=== PATIENT | male | born 1950 | race Caucasian/White ===

== ENCOUNTER 2023-08-16 13:43 | Observation (INO) ==
--- NOTE | 2023-08-16 13:53 | ED Triage Note ---
Date of Service August 16, 2023 Provider in Triage Author: Carmelina Mccormick History of Present Illness This patient was briefly evaluated while in triage. An abbreviated physical exam was performed. This patient is a 73-year-old Male who presents to the ED for evaluation of abnormal MRI. Radiology report states 14 x 5 mm linear infarct involving the frontal lobe white matter. Pt denies any neurological deficits. Reports sent here for stroke workup. Physical Exam CONSTITUTIONAL: in no acute pain or distress, resting comfortably SKIN: pink, warm, dry CARDIAC: regular rate and rhythm RESPIRATORY: in no respiratory distress, lungs clear to auscultation ABDOMEN: no TTP MSK: 5/5 strength throughout NEURO: No neuro deficits noted, A&O x 3. Initial orders for labs and / or imaging were placed and patient was placed in the waiting area until a bed is available. Please see further documentation for the full ED course.
[2023-08-16 14:56] LABS: Basophils # (auto) 0.03 K/uL (0.00-0.20); Basophils % (auto) 0.6 %; Eosinophils # (auto) 0.11 K/uL (0.00-0.50); Eosinophils % (auto) 2.3 %; Hemoglobin 15.7 g/dl (14.0-18.0); Immature Granulocytes # (auto) 0.02 K/uL (0.01-0.20); Immature Granulocytes % (auto) 0.4 %; Lymphocytes # (auto) 0.92 K/uL (1.20-3.40); Lymphocytes % (auto) 18.9 %; Mean Corpuscular Hemoglobin 31.3 pg (25.0-34.0); Mean Corpuscular Hgb Conc 34.1 g/dL (32.0-36.0); Mean Corpuscular Volume 91.6 fL (80.0-100.0); Mean Platelet Volume 8.7 fL (9.4-12.4); Monocytes # (auto) 0.54 K/uL (0.11-0.59); Monocytes % (auto) 11.1 %; Neutrophils # (auto) 3.24 K/uL (1.40-6.50); Neutrophils % (auto) 66.7 %; Platelet Count 198 K/uL (130-400); RDW Standard Deviation 50.1 fL (36.4-46.3); Red Blood Count 5.02 M/uL (4.70-6.10); White Blood Count 4.86 K/ul (4.8-10.8)
[2023-08-16 15:05] LABS: Albumin Globulin Ratio 1.6 (0.9-2); Albumin Level 4.5 gm/dl (3.4-5.0); BUN Creatinine Ratio 19.5 (10-20); Bilirubin,Total 0.4 mg/dl (0.2-1.0); Calcium 9.9 mg/dl (8.6-10.3); Creatinine Clr Calc Pharmacy 48.1 ml/min; Est GFR (African American) 49.5 ml/min; Est GFR (Non-African American) 42.7 ml/min; Globulin 2.9 gm/dl (2.5-4.0); Potassium 4.3 mmol/L (3.5-5.1); Total Protein 7.4 gm/dl (6.0-8.3)
[2023-08-16 15:12] LABS: Troponin I High Sensitivity 4.2 pg/ml (0-20)
[2023-08-16 15:14] LABS: Partial Thromboplastin Ratio 1.1; Partial Thromboplastin Time 31 Seconds (21-31); Prothrombin Time 11.2 Seconds (9.0-12.0)
--- NOTE | 2023-08-16 15:33 | XRay Report ---
XR chest 1V not portable CLINICAL HISTORY: cva TECHNIQUE: Single frontal radiograph of the chest was obtained. Comparison: Comparison is made to chest radiograph 03/04/2022 FINDINGS: No lines and tubes are seen. Cardiomegaly is noted. The lungs are clear. No evidence of pleural effus ion or pneumothorax. IMPRESSION: No acute chest disease. Cardiomegaly is noted. ACT 112: Negative or not required by law. Electronically signed by: Barrett Cunningham M.D. 08/16/2023 3:32 PM
[2023-08-16] MEDS ORDERED: ASPIRIN CHEW 324 MG PO STA (15:43)
--- NOTE | 2023-08-16 15:43 | Emergency Department Note ---
Impression & Plan Stroke ADMIT ED Provider Note HPI: History obtained from patient and . The patient is a 73-year-old gentleman who presents the emergency department after a stroke was noted on an outpatient MRI that he received today for an abnormal hearing test. Patient states he had the MRI ordered because he had an abnormal hearing test and his provider was concerned that he might have a tumor or potential lesion on the vestibular nerve. Patient was contacted this morning as upon interpretation of the MRI there was noted to be a left frontal lobe infarct. Patient denies any appreciable neurologic deficits recently, his who is with him here in the ED states that she has noticed at times he seems off balance and has had some issues with slurred speech. She tells me that she has noticed this over the past several weeks. On arrival here to the ED the patient is hemodynamically stable, he is otherwise in no acute distress. ROS: - Per HPI Differential Diagnosis: Acute ischemic stroke, critical electrolyte abnormalities, dehydration/JINNY, ACS, arrhythmia to include atrial fibrillation, amongst other potential pathologies. *Outpatient medications and allergy history reviewed. PE: General: Alert HEENT: Normocephalic, trachea midline Eyes: Extraocular eye movement is intact, no scleral erythema Pulmonary: Clear to auscultation bilaterally, no wheezing Cardio: Regular rate and rhythm GI: Abdomen is soft to palpation : No suprapubic tenderness MSK: No evidence of trauma or malformation of the extremities, no edema Skin: No evidence of rash Neuro: Alert, no focal deficits, no drift of the upper extremities or lower extremities with testing against gravity, symmetrical facial movements are appreciated Psychiatric: Cooperative INDEPENDENT INTERPRETATIONS: gambling monitor: (As interpreted by myself): - An order was placed for continuous cardiac monitoring - Patient was noted to be in sinus rhythm with a rate of 85 EKG: (As interpreted by myself): Rate: 83 Rhythm: Normal sinus rhythm Intervals: Within normal limits ST changes: No ST elevation Time: 1422 Chest x-ray: (As interpreted by myself): No acute disease Interventions provided in ED: -Aspirin, IV fluid bolus NIH STROKE SCALE: 1A: Level of consciousness Alert; keenly responsive 0 1B: Ask month and age Both questions right 0 1C: 'Blink eyes' & 'squeeze hands' Performs both tasks 0 2: Horizontal extraocular movements Normal 0 3: Visual simeon No visual loss 0 4: Facial palsy Normal symmetry 0 5A: Left arm motor drift No drift for 10 seconds 0 5B: Right arm motor drift No drift for 10 seconds 0 6A: Left leg motor drift No drift for 5 seconds 0 6B: Right leg motor drift No drift for 5 seconds 0 7: Limb Ataxia No ataxia 0 8: Sensation Normal; no sensory loss 0 9: Language/aphasia Normal 0 10: Dysarthria Mild-moderate dysarthria: slurring but can be understood +1 11: Extinction/inattention No abnormality 0 TOTAL NIH SCORE =1 Medical Decision Making: IV was established lab work obtained, patient was placed on media monitor when placed in ED room. Lab work shows no leukocytosis, hemoglobin is normal, platelet count is normal, CMP does not show any critical findings, creatinine is slightly elevated above baseline at 1.59, patient was ordered IV fluids. Troponin is negative, EKG per my interpretation shows normal sinus rhythm without any acute ischemic changes or evidence of arrhythmia. I did review the report of the patient's MRI imaging of the brain today with and without contrast that showed evidence of a 14 x 5 mm linear appearing acute infarct in the left frontal lobe. Unclear symptom onset, the only symptoms the patient's is telling me about is that he has had some slurred speech which I can appreciate on my exam. At times he has had issues with balance but does not seem to have any issues today. Symptom onset is unclear, possibly could be weeks, therefore the patient is not considered a candidate for any thrombolytics or aggressive therapy at this point. I discussed this with the patient and his . I did recommend admission for secondary stroke work-up to which they are in agreement. [facility] hospitalist service was consulted for admission, case was discussed with Dr. Hay, and the patient was placed for admission in stable condition. Consultants/Discussions held with other healthcare providers: -HospitalistDr. Hay Disposition discussion held by myself with: -Patient and Diagnosis: 1. Acute stroke, left frontal lobe 2. Abnormal outpatient MRI of the brain 3. 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 GERD without esophagitis Peripheral neuropathy COPD (chronic obstructive pulmonary disease) Primary hypertension CAD (coronary artery disease) Atypical chest pain Hyperlipidemia Ischemic cardiomyopathy Surgical History S/P cardiac catheterization Family History (Updated 07/20/23 @ 11:45 by Charo Denny) Mother Heart disease Myocardial infarction Hypertension Father Alcoholism Sister , Age: 52 COPD (chronic obstructive pulmonary disease) Brother Coronary heart disease Other No family history of adverse response to anesthesia No family history of bleeding disorder Denies family history of Ovarian cancer Prostate cancer Breast cancer Colorectal cancer Social History (Updated 07/20/23 @ 11:45 by Charo Denny) Smoking Status: Never smoker Tobacco Type: Cigarettes packs per day: 1; Second Hand Exposure: No; Do You Dip or Chew Tobacco: No; Hx Alcohol Use: No Hx Substance Use: No Preferred Language: Divehi marital status: Current Living Situation: Spouse current occupational status: retired 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, 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 Feels Safe at Home: Yes Childhood Exposure to Second-Hand Smoke: Yes caffeine: Yes (Coffee, Carbonated beverage, 1 daily) Dental Care, Regularly: Yes Physical Activity Frequency: 3-4 Times per Week Physical Activity Frequency Comment: Walking Seatbelt Use: always Sunscreen Use: No Assistive Devices: None Allergies Allergies Allergy/AdvReac Type Severity Reaction Status Date / Time No Known Drug Allergies Allergy Unverified 07/20/23 11:43 Home Meds Home Medications Medication Instructions Recorded Confirmed aspirin 81 mg tablet,delayed 81 mg PO QAM 09/03/21 08/16/23 release nitroglycerin 0.4 mg sublingual 0.4 mg sublingual Q5M PRN Chest 09/03/21 08/16/23 tablet (Nitrostat) Pain cyanocobalamin (vitamin B-12) 1,000 mcg PO QAM 08/16/23 08/16/23 1,000 mcg tablet (Vitamin B-12) gabapentin 300 mg capsule 900 mg PO UD 08/16/23 08/16/23 hydrochlorothiazide 25 mg tablet 25 mg PO QAM 08/16/23 08/16/23 metformin 500 mg tablet 2,000 mg PO QPM 08/16/23 08/16/23 olmesartan 40 mg tablet 40 mg PO HS 08/16/23 08/16/23 omeprazole 20 mg capsule,delayed 20 mg PO QAM 08/16/23 08/16/23 release Previous Rx's Medication Instructions Recorded atorvastatin 20 mg tablet 20 mg PO HS #90 tabs 01/10/23 carvedilol 25 mg tablet 25 mg PO BID #180 tabs 04/05/23 Results & Data (ED) Vital Signs Vital Signs - 24 hr 08/16/23 13:53 Temperature 36.1 C L Temperature Source Temporal Artery Scan Pulse Rate 88 Respiratory Rate 20 Respiratory Effort / Characteristics Non-Labored Respiratory Depth Normal Blood Pressure 136/86 Blood Pressure Mean 102 Pulse Oximetry 96 Oxygen Delivery Method Room Air Sepsis Recent Fever Within 48 Hours No Sepsis New/Unexplained Change in Mental Status N/A Sepsis Action Taken by Nursing No Action Required Laboratory Data 08/16/23 14:26 08/16/23 14:26 Lab Results 08/16/23 Range/Units 14:26 WBC 4.86 (4.8-10.8) K/ul RBC 5.02 (4.70-6.10) M/uL Hgb 15.7 (14.0-18.0) g/dl Hct 46.0 (42.0-52.0) % MCV 91.6 (80.0-100.0) fL MCH 31.3 (25.0-34.0) pg MCHC 34.1 (32.0-36.0) g/dL RDW Std Deviation 50.1 H (36.4-46.3) fL RDW Coeff of [place] 15.0 H (11.5-14.5) % Plt Count 198 (130-400) K/uL MPV 8.7 L (9.4-12.4) fL Immature Gran % (Auto) 0.4 % Neut % (Auto) 66.7 % Lymph % (Auto) 18.9 % [place] % (Auto) 11.1 % Eos % (Auto) 2.3 % Baso % (Auto) 0.6 % Neut # (Auto) 3.24 (1.40-6.50) K/uL Lymph # (Auto) 0.92 L (1.20-3.40) K/uL [place] # (Auto) 0.54 (0.11-0.59) K/uL Eos # (Auto) 0.11 (0.00-0.50) K/uL Baso # (Auto) 0.03 (0.00-0.20) K/uL Immature Gran # (Auto) 0.02 (0.01-0.20) K/uL PT 11.2 (9.0-12.0) Seconds INR 1.0 (0.9-1.1) APTT 31 (21-31) Seconds PTT Ratio 1.1 Sodium 138 (136-145) mmol/L Potassium 4.3 (3.5-5.1) mmol/L Chloride 102 (98-107) mmol/L Carbon Dioxide 28 (21-32) mmol/L Anion Gap 8 (3-11) BUN 31 H (6-23) mg/dl Creatinine 1.59 H (0.6-1.4) mg/dl Est Cr Clr Drug Dosing 48.1 ml/min Est GFR ( Amer) 49.5 ml/min Est GFR (Non-Af Amer) 42.7 ml/min BUN/Creatinine Ratio 19.5 (10-20) Glucose 120 H (70-99(Fasting)) mg/dl Calcium 9.9 (8.6-10.3) mg/dl Total Bilirubin 0.4 (0.2-1.0) mg/dl AST 15 (13-39) U/L ALT 19 (7-52) U/L Alkaline Phosphatase 79 (34-104) U/L Troponin I High Sens 4.2 (0-20) pg/ml Total Protein 7.4 (6.0-8.3) gm/dl Albumin 4.5 (3.4-5.0) gm/dl Globulin 2.9 (2.5-4.0) gm/dl Albumin/Globulin Ratio 1.6 (0.9-2) Administered Medications Discontinued Medications Aspirin (Aspirin Chew 324 Mg) 324 mg PO NOW STA Stop: 08/16/23 15:44 Last Admin: 08/16/23 16:01 Dose: 324 mg Documented By: MIGNON Sodium Chloride (Nss) 500 mls @ 999 mls/hr IV .Q31M ONE Stop: 08/16/23 16:16 Last Admin: 08/16/23 16:02 Dose: 999 mls/hr Documented By: MIGNON Imaging Data Radiologist's Impression: Chest X-Ray 08/16/23 14:02 XR chest 1V not portable CLINICAL HISTORY: cva TECHNIQUE: Single frontal radiograph of the chest was obtained. Comparison: Comparison is made to chest radiograph 03/04/2022 FINDINGS: No lines and tubes are seen. Cardiomegaly is noted. The lungs are clear. No evidence of pleural effusion or pneumothorax. IMPRESSION: No acute chest disease. Cardiomegaly is noted. ACT 112: Negative or not required by law. Electronically signed by: Barrett Cunningham M.D. 08/16/2023 3:32 PM Discharge Plan Visit Data Chief Complaint: Referred by Doctor Stated Complaint: REF BY ABNORMALITIES IN MRI ED Provider: Anders Richardson Discharge Problem: Stroke Forms Stand Alone Forms: My [facility] [place] [facility] Prescriptions Prescriptions: No Action atorvastatin 20 mg tablet 20 mg PO HS Qty: 90 3RF aspirin 81 mg tablet,delayed release (DR/EC) 81 mg PO QAM nitroglycerin [Nitrostat] 0.4 mg tablet, sublingual 0.4 mg sublingual Q5M PRN (Reason: Chest Pain) Rx Instructions: do not exceed 3 doses per episode carvedilol 25 mg tablet 25 mg PO BID Qty: 180 3RF Rx Instructions: must administer with a meal/food gabapentin 300 mg capsule 900 mg PO UD Rx Instructions: Take 300mg in AM, 600mg in PM cyanocobalamin (vitamin B-12) [Vitamin B-12] 1,000 mcg Tablet 1,000 mcg PO QAM hydrochlorothiazide 25 mg tablet 25 mg PO QAM metformin 500 mg tablet 2,000 mg PO QPM omeprazole 20 mg capsule,delayed release(DR/EC) 20 mg PO QAM olmesartan 40 mg tablet 40 mg PO HS Referrals Referrals: Geri Banks MD [Primary Care Provider] - Discharge Problem: Stroke Qualifiers: CVA mechanism: unspecified Qualified Code(s): I63.9 - Cerebral infarction, unspecified
[2023-08-16] MEDS ORDERED: SODIUM CHLORIDE 0.9% 500 ML IV ONE (15:46)
--- NOTE | 2023-08-16 16:06 | History & Physical Report ---
Date of Service August 16, 2023 Assessment & Plan (1) Stroke: Plan: Asymptomatic on admission per exam - feels 2 weeks of mild slurred speech and off balance CT angiogram head/neck Echocardiogram with bubble Monitor for arrhythmia on telemetry Given lack of symptoms will hold off neurology consult Continue his usual anti-hypertensives - given lack of symptoms and unknown duration of stroke he doesn't clearly need permissive hypertension ASA, add clopidogrel, continue atorvastatin (may need to increase dose pending LDL with AM labs) (2) Type 2 diabetes mellitus with albuminuria: Plan: Hemoglobin A1C 6.5 in May, repeat with AM labs Home regimen of metformin alone NovoLog prescribed just for correction initially but will need basal dosing if frequently utilized (3) Sensorineural hearing loss (SNHL) of left ear with restricted hearing of right ear: (4) Ischemic cardiomyopathy: Plan: Continue carvedilol and losartan No signs of heart failure at this time (5) CAD (coronary artery disease): Plan: ASA, carvedilol, losartan, atorvastatin (6) Peripheral neuropathy: Plan: Continue gabapentin B12 with AM labs (7) GERD without esophagitis: Plan: Switch omeprazole to pantoprazole per hospital formulary Continue switching on discharge due to interaction with clopidogrel (8) Primary hypertension: Plan: Continue his usual anti-hypertesnives. Does not need permissive hypertension as discussed above Plan VTE Prophylaxis - low risk given likely short duration of stay Diet - heart healthy Disposition - observation to med/tele (2 midnight rule) Admission and Anticipated Discharge Date Admission Date: August 16, 2023 History of Present Illness Chief Complaint: Abnormal MRI Primary Care Provider: Geri Banks MD Mike Young is a 73 year old male who presents to the ER due to outpatient MRI by audiology performed for hearing loss. MRI brain concerning for acute stroke. Other than his hearing loss he denies any other symptoms of extremity weakness, change in sensation, facial droop, slurred speech, vision or speech changes. His is no longer at bedside but had expressed some concern about his speech and off balance over the last 2 weeks to the ER provider although this is denied by the patient. Allergies Allergy/AdvReac Type Severity Reaction Status Date / Time No Known Drug Allergies Allergy Unverified 07/20/23 11:43 Home Medications Medication Instructions Recorded Confirmed Type aspirin 81 mg tablet,delayed 81 mg PO QAM 09/03/21 08/16/23 History release nitroglycerin 0.4 mg sublingual 0.4 mg sublingual Q5M PRN Chest 09/03/21 08/16/23 History tablet (Nitrostat) Pain carvedilol 25 mg tablet 25 mg PO BID #180 tabs 04/05/23 08/16/23 Rx atorvastatin 20 mg tablet 20 mg PO HS 08/16/23 08/16/23 History cyanocobalamin (vitamin B-12) 1,000 mcg PO QAM 08/16/23 08/16/23 History 1,000 mcg tablet (Vitamin B-12) gabapentin 300 mg capsule 900 mg PO UD 08/16/23 08/16/23 History hydrochlorothiazide 25 mg tablet 25 mg PO QAM 08/16/23 08/16/23 History metformin 500 mg tablet 2,000 mg PO QPM 08/16/23 08/16/23 History olmesartan 40 mg tablet 40 mg PO HS 08/16/23 08/16/23 History omeprazole 20 mg capsule,delayed 20 mg PO QAM 08/16/23 08/16/23 History release semaglutide 0.25 mg or 0.5 mg (2 0.5 mg subcut WK 08/16/23 08/16/23 History mg/3 mL) subcutaneous pen injector Past Med/Surg History Medical History (Updated 08/16/23 @ 16:20 by Anders Richardson DO) Obesity (BMI 30-39.9) 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 GERD without esophagitis Peripheral neuropathy COPD (chronic obstructive pulmonary disease) Primary hypertension CAD (coronary artery disease) Atypical chest pain Hyperlipidemia Ischemic cardiomyopathy Surgical History S/P cardiac catheterization Family History (Updated 07/20/23 @ 11:45 by Charo Denny) Mother Heart disease Myocardial infarction Hypertension Father Alcoholism Sister , Age: 52 COPD (chronic obstructive pulmonary disease) Brother Coronary heart disease Other No family history of adverse response to anesthesia No family history of bleeding disorder Denies family history of Ovarian cancer Prostate cancer Breast cancer Colorectal cancer Social History (Updated 07/20/23 @ 11:45 by Charo Denny) Smoking Status: Former smoker Tobacco Type: Cigarettes packs per day: 1; Second Hand Exposure: No; Do You Dip or Chew Tobacco: No; Tobacco Cessation Education Requested by Patient: No Hx Alcohol Use: No Hx Substance Use: No Preferred Language: Senegalese Communication Ability: Effective Electrical Engineering Professor Required: No Beliefs That Will Affect Care: None marital status: Current Living Situation: Spouse current occupational status: retired 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, 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 Other Information That Helps Us Care for You: No Feels Safe at Home: Yes Safety Concerns: Feels Safe At This Time Childhood Exposure to Second-Hand Smoke: Yes caffeine: Yes (Coffee, Carbonated beverage, 1 daily) Dental Care, Regularly: Yes Physical Activity Frequency: 3-4 Times per Week Physical Activity Frequency Comment: Walking Seatbelt Use: always Sunscreen Use: No Assistive Devices: None Review of Systems Review of Systems: All systems reviewed & are unremarkable except as noted in HPI & below Physical Exam Constitutional: WD/WN, vitals as above Eyes: PERRL, conjunctivae normal, anicteric sclerae Respiratory: normal respiratory effort, lungs clear to auscultation Cardiovascular: RRR, no murmur, no edema Gastrointestinal (Abdomen): normal bowel sounds, soft, nontender, no hepatosplenomegaly Musculoskeletal: no cyanosis or clubbing, extremities motor strength 5/5 Skin: no rashes, warm and dry Neurologic: moves all extremities and awake; no focal motor deficits and not confused Speech / Cognition: normal speech Motor/Sensory: no tremor and no pronator drift Cranial Nerves: PERRL, normal accommodation, EOM intact bilaterally, normal facial strength, able to rotate head bilaterally, able to elevate shoulders bilaterally, no nystagmus and symmetric palate elevation Psychiatric: A+Ox3, euthymic affect Genitourinary: no CVA tenderness Results & Data Results & Data Vital Signs (Past 12 Hours) Vital Signs Temp Pulse Resp BP Pulse Ox O2 Del Method 08/16/23 13:53 36.1 C L 88 20 136/86 96 Room Air Laboratory Results Abnormal lab results 08/16/23 Range/Units 14:26 RDW Std Deviation 50.1 H (36.4-46.3) fL RDW Coeff of [place] 15.0 H (11.5-14.5) % MPV 8.7 L (9.4-12.4) fL Lymph # (Auto) 0.92 L (1.20-3.40) K/uL BUN 31 H (6-23) mg/dl Creatinine 1.59 H (0.6-1.4) mg/dl Glucose 120 H (70-99(Fasting)) mg/dl Diagnostic Findings XR chest 1V not portable CLINICAL HISTORY: cva TECHNIQUE: Single frontal radiograph of the chest was obtained. Comparison: Comparison is made to chest radiograph 03/04/2022 FINDINGS: No lines and tubes are seen. Cardiomegaly is noted. The lungs are clear. No evidence of pleural effusion or pneumothorax. IMPRESSION: No acute chest disease. Cardiomegaly is noted. Brain MRI WITH AND WITHOUT CONTRAST HISTORY: Left sided hearing loss. [id number] - TECHNIQUE: Multiplanar multisequence MRI of the brain was performed both before and after the intravenous administration of contrast. COMPARISON STUDY: Head CT 10/15/2021. FINDINGS: Small linear focus of restricted diffusion within the left frontal lobe white matter best seen on image 20. This is consistent with an acute infarct. This measures approximate 14 x 5 mm. The midline structures are intact. The orbits are unremarkable. The paranasal sinuses and mastoid air cells are clear. The major vascular flow-voids at the skull base are well-maintained. The ventricles and sulci demonstrate mild age-related involutional changes. There is no mass, hematoma, midline shift, or acute infarct. Scattered foci of T2 hyperintensity within the periventricular and subcortical white matter are nonspecific but favor mild microvascular ischemic change given the patient's age. Postcontrast sequences show no areas of abnormal enhancement. The 7th and 8th cranial nerves are normal in course and caliber. No evidence for inner ear dysplasia. No abnormal enhancement or masses within the bilateral internal auditory canals. IMPRESSION: 1. A 14 x 5 mm linear acute infarct involving the left frontal lobe white matter. 2. Normal bilateral internal auditory canals. 3. This report was called/faxed to the referring physician following dictation. Medications Administered ER Medications Given: Normal saline 500ml Aspirin 324mg PO ECG Rate (beats per minute): 83 Rhythm: normal sinus Findings: no acute ischemic change Comparison ECG Date: from (February 24, 2021) Change: no significant change Code Status & VTE Plan Code Status Full VTE Prophylaxis Plan VTE Prophylaxis will be ordered: No PG Care Time/CCT Total # of Minutes Spent Total Time Spent with Patient: Total time spent is greater than 50% in coordination of care (as documented) at patient's floor/unit and/or counseling patient: Coding Level of Care Code 69322 INT INP/OBS CARE Diagnoses Stroke I63.9 CVA mechanism: unspecified Type 2 diabetes mellitus with albuminuria E11.29; R80.9 Sensorineural hearing loss (SNHL) of left ear with restricted hearing of right ear H90.A22 Ischemic cardiomyopathy I25.5 CAD (coronary artery disease) I25.10 Peripheral neuropathy G62.9 GERD without esophagitis K21.9 Primary hypertension I10 (1) Stroke CVA mechanism: unspecified Qualified Code(s): I63.9 - Cerebral infarction, unspecified
[2023-08-16] MEDS ORDERED: LACTATED RINGER'S 500 ML IV ONE (16:28)
[2023-08-16] MEDS ORDERED: OPTIRAY 320 125ml IV ONE (17:43)
[2023-08-16] MEDS ORDERED: CLOPIDOGREL BISULFATE 300 MG TAB PO STA (18:20)
--- NOTE | 2023-08-16 18:36 | CT Scan Report ---
CT angio neck with con, CT angio head wo/w CLINICAL HISTORY: 14 x 5 mm linear acute frontal lobe infarct TECHNIQUE: Contiguous axial CT images of the head were acquired from the base of the skull to the odilia barbie without intravenous contrast administration. CT angiography of the head and neck was performed f ollowing intravenous administration of iodinated contrast. Coronal and sagittal MIPS were obtained fr om the axial data set and were submitted for review. Automated dose lowering techniques and/or adjus tment according to patient size were utilized for this examination. All measurements were calculated based on NASCET criteria. CT DOSE: 1208.62 mGy.cm Comparison: Comparison is made to MRI brain 08/16/2023 FINDINGS: CT head: Areas of decreased attenuation are present in the periventricular and subcortical white jocelyn er bilaterally consistent with small vessel ischemic disease. Generalized cerebral atrophy with comme nsurate enlargement of the ventricles, sulci, and cisterns is also present. Questionable minimal hypo density at the site of diffusion restriction seen on prior MRI. Lungs and soft tissues are unremarkable. CTA Neck: A 3 vessel aortic arch is shown. There is no significant atherosclerotic plaque in the aor tic arch or the origins of the innominate, left common carotid, and left subclavian arteries. The co mmon carotid, external carotid, cervical segments of the internal carotid arteries, and the cervical segments of the vertebral arteries are patent without hemodynamically significant stenosis. The verte bral arteries are codominant. There is a 5 mm aneurysm of the right the fourth segment of the vertebr al artery. CTA Head: The anterior and posterior cerebral circulations are patent. No hemodynamically significan t stenosis, aneurysm, dissection, or arteriovenous malformation is shown. IMPRESSION: 1. Questionable hypodensity corresponding to the focus of diffusion restriction in the prior MRI. 2. No occlusion, hemodynamically significant stenosis, or dissection in the major cervical arteries. There is aneurysmal enlargement of the right vertebral artery the V4 segment. 3. No occlusion, hemodynamically significant stenosis, aneurysm, dissection, or arteriovenous malfor mation in the major intracranial arteries. Assessment of stenosis of the internal carotid arteries is based on NASCET criteria. ACT 112: Negative or not required by law. Electronically signed by: Barrett Cunningham M.D. 08/16/2023 6:34 PM
[2023-08-16] MEDS ORDERED: ATORVASTATIN 20 MG TAB PO SCH (22:02)
[2023-08-16] MEDS ORDERED: GLUCOSE 40% GEL 15 GM TUBE PO PRN (22:02)
[2023-08-16] MEDS ORDERED: PHARMACIST DISCHARGE MED REC CONSULT PRN (22:02)
[2023-08-16] MEDS ORDERED: DEXTROSE 50% 50 ML SYRINGE IV PRN (22:02)
[2023-08-16] MEDS ORDERED: GLUCAGON FOR INJ 1 MG VIAL SQ PRN (22:02)
[2023-08-16] MEDS ORDERED: CARBOHYDRATES FOR HYPOGLYCEMIA PO PRN (22:02)
[2023-08-16] MEDS ORDERED: GLUCOSE 10 TAB/TUBE PO PRN (22:02)
[2023-08-16] MEDS ORDERED: GABAPENTIN 600 MG TAB PO SCH (22:02)
[2023-08-16] MEDS: carvediloL 25 MG TAB PO SCH (22:46)
[2023-08-16] MEDS: INSULIN ASPART PER UNIT CHARGE SC SCH (22:53)
[2023-08-17 06:53] LABS: Basophils # (auto) 0.03 K/uL (0.00-0.20); Basophils % (auto) 0.7 %; Eosinophils # (auto) 0.12 K/uL (0.00-0.50); Eosinophils % (auto) 2.6 %; Immature Granulocytes # (auto) 0.01 K/uL (0.01-0.20); Immature Granulocytes % (auto) 0.2 %; Lymphocytes # (auto) 0.83 K/uL (1.20-3.40); Lymphocytes % (auto) 18.2 %; Mean Corpuscular Hgb Conc 34.9 g/dL (32.0-36.0); Mean Corpuscular Volume 88.8 fL (80.0-100.0); Mean Platelet Volume 8.6 fL (9.4-12.4); Monocytes # (auto) 0.76 K/uL (0.11-0.59); Monocytes % (auto) 16.7 %; Neutrophils % (auto) 61.6 %; Platelet Count 170 K/uL (130-400); RDW Coefficient of Variation 14.8 % (11.5-14.5); RDW Standard Deviation 47.8 fL (36.4-46.3); Red Blood Count 4.84 M/uL (4.70-6.10); White Blood Count 4.55 K/ul (4.8-10.8)
[2023-08-17 07:20] LABS: BUN Creatinine Ratio 18.7 (10-20); Calcium 9.5 mg/dl (8.6-10.3); Chol HDL Ratio 6.3 (0-5); Creatinine Clr Calc Pharmacy 54.3 ml/min; Est GFR (African American) 58.3 ml/min; Est GFR (Non-African American) 50.3 ml/min; Potassium 4.2 mmol/L (3.5-5.1)
[2023-08-17 08:15] LABS: Estimated Average Glucose 131 mg/dl; Hemoglobin A1C 6.2 % (4.5-5.6)
[2023-08-17] MEDS: CLOPIDOGREL BISULFATE 75 MG TAB PO SCH ×2 (08:24→08:25)
[2023-08-17] MEDS: carvediloL 25 MG TAB PO SCH (08:25)
[2023-08-17] MEDS: INSULIN ASPART PER UNIT CHARGE SC SCH ×3 (08:25→17:12)
[2023-08-17] MEDS ORDERED: LOSARTAN POTASSIUM 50 MG TAB PO SCH (09:00)
[2023-08-17] MEDS ORDERED: PANTOprazole 40 MG TAB PO SCH (09:00)
[2023-08-17] MEDS ORDERED: hydroCHLOROthiazide 25 MG TAB PO SCH (09:00)
[2023-08-17] MEDS ORDERED: ASPIRIN 81 MG ECTAB PO SCH (09:00)
[2023-08-17] MEDS ORDERED: INFLUENZA VACCINE HIGH-DOSE (HD-IIV4) PF 65+ 0.7mL SYR IM ONE (09:00)
[2023-08-17] MEDS ORDERED: GABAPENTIN 300 MG CAP PO SCH (09:00)
--- NOTE | 2023-08-17 13:50 | XCELERA ---
[id number] \\[id number]\[id number]}___[id number]
--- NOTE | 2023-08-17 15:26 | Electrocardiogram Report ---
Test Reason : Blood Pressure : / mmHG Vent. Rate : 083 BPM Atrial Rate : 083 BPM P-R Int : 174 ms QRS Dur : 102 ms QT Int : 360 ms P-R-T Axes : 053 024 055 degrees QTc Int : 423 ms Normal sinus rhythm Inferior infarct , age undetermined Poor R wave progression, consider anterior HI vs. lead placement vs. LVH Abnormal ECG No previous ECGs available Confirmed by Karthik Haque ([id number]) on 08/17/2023 3:26:46 PM Referred By: REFERRED SELF Confirmed By:Karthik Haque
[2023-08-17] MEDS ORDERED: STROKE PATIENT DISCHARGE STA (17:13)
--- NOTE | 2023-08-17 17:19 | Discharge Summary ---
Date of Service date of admission - August 16, 2023 date of discharge - August 17, 2023 Admission HPI Per Admitting Provider Mike Young is a 73 year old male who presents to the ER due to outpatient MRI by audiology performed for hearing loss. MRI brain concerning for acute stroke. Other than his hearing loss he denies any other symptoms of extremity weakness, change in sensation, facial droop, slurred speech, vision or speech changes. His is no longer at bedside but had expressed some concern about his speech and off balance over the last 2 weeks to the ER provider although this is denied by the patient. Principal Diagnosis 1. left frontal lobe stroke 2. 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 Discharge Exam gen - NAD, looks well face - no droop mouth - MMM neck - no JVD heart - RRR, s1 s2, no murmur lungs - CTA b/l abd - soft NT ND BS+ ext - no edema, pulses 2+ b/l neuro - strength 5/5 x 4 exts; speech fluent/clear; no facial droop; no pronator drift Discharge Data Allergies Allergy/AdvReac Type Severity Reaction Status Date / Time No Known Drug Allergies Allergy Unverified 08/24/23 11:19 Consultations PT, OT, Speech therapy Procedures Performed Echocardiogram: Ordered Studies Chest X-Ray 08/16/23 14:02 XR chest 1V not portable CLINICAL HISTORY: cva TECHNIQUE: Single frontal radiograph of the chest was obtained. Comparison: Comparison is made to chest radiograph 03/04/2022 FINDINGS: No lines and tubes are seen. Cardiomegaly is noted. The lungs are clear. No evidence of pleural effusion or pneumothorax. IMPRESSION: No acute chest disease. Cardiomegaly is noted. ACT 112: Negative or not required by law. Electronically signed by: Barrett Cunningham M.D. 08/16/2023 3:32 PM Head CTA 08/16/23 16:25 CT angio neck with con, CT angio head wo/w CLINICAL HISTORY: 14 x 5 mm linear acute frontal lobe infarct TECHNIQUE: Contiguous axial CT images of the head were acquired from the base of the skull to the vertex without intravenous contrast administration. CT angiography of the head and neck was performed following intravenous administration of iodinated contrast. Coronal and sagittal MIPS were obtained from the axial data set and were submitted for review. Automated dose lowering techniques and/or adjustment according to patient size were utilized for this examination. All measurements were calculated based on NASCET criteria. CT DOSE: 1208.62 mGy.cm Comparison: Comparison is made to MRI brain 08/16/2023 FINDINGS: CT head: Areas of decreased attenuation are present in the periventricular and subcortical white matter bilaterally consistent with small vessel ischemic disease. Generalized cerebral atrophy with commensurate enlargement of the ventricles, sulci, and cisterns is also present. Questionable minimal hypodensity at the site of diffusion restriction seen on prior MRI. Lungs and soft tissues are unremarkable. CTA Neck: A 3 vessel aortic arch is shown. There is no significant atherosclerotic plaque in the aortic arch or the origins of the innominate, left common carotid, and left subclavian arteries. The common carotid, external carotid, cervical segments of the internal carotid arteries, and the cervical segments of the vertebral arteries are patent without hemodynamically significant stenosis. The vertebral arteries are codominant. There is a 5 mm aneurysm of the right the fourth segment of the vertebral artery. CTA Head: The anterior and posterior cerebral circulations are patent. No hemodynamically significant stenosis, aneurysm, dissection, or arteriovenous malformation is shown. IMPRESSION: 1. Questionable hypodensity corresponding to the focus of diffusion restriction in the prior MRI. 2. No occlusion, hemodynamically significant stenosis, or dissection in the major cervical arteries. There is aneurysmal enlargement of the right vertebral artery the V4 segment. 3. No occlusion, hemodynamically significant stenosis, aneurysm, dissection, or arteriovenous malformation in the major intracranial arteries. Assessment of stenosis of the internal carotid arteries is based on NASCET criteria. ACT 112: Negative or not required by law. Electronically signed by: Barrett Cunningham M.D. 08/16/2023 6:34 PM Neck CTA 08/16/23 16:25 CT angio neck with con, CT angio head wo/w CLINICAL HISTORY: 14 x 5 mm linear acute frontal lobe infarct TECHNIQUE: Contiguous axial CT images of the head were acquired from the base of the skull to the vertex without intravenous contrast administration. CT angiography of the head and neck was performed following intravenous administration of iodinated contrast. Coronal and sagittal MIPS were obtained from the axial data set and were submitted for review. Automated dose lowering techniques and/or adjustment according to patient size were utilized for this examination. All measurements were calculated based on NASCET criteria. CT DOSE: 1208.62 mGy.cm Comparison: Comparison is made to MRI brain 08/16/2023 FINDINGS: CT head: Areas of decreased attenuation are present in the periventricular and subcortical white matter bilaterally consistent with small vessel ischemic disease. Generalized cerebral atrophy with commensurate enlargement of the ventricles, sulci, and cisterns is also present. Questionable minimal hypodensity at the site of diffusion restriction seen on prior MRI. Lungs and soft tissues are unremarkable. CTA Neck: A 3 vessel aortic arch is shown. There is no significant atherosclerotic plaque in the aortic arch or the origins of the innominate, left common carotid, and left subclavian arteries. The common carotid, external carotid, cervical segments of the internal carotid arteries, and the cervical segments of the vertebral arteries are patent without hemodynamically significant stenosis. The vertebral arteries are codominant. There is a 5 mm aneurysm of the right the fourth segment of the vertebral artery. CTA Head: The anterior and posterior cerebral circulations are patent. No hemodynamically significant stenosis, aneurysm, dissection, or arteriovenous malformation is shown. IMPRESSION: 1. Questionable hypodensity corresponding to the focus of diffusion restriction in the prior MRI. 2. No occlusion, hemodynamically significant stenosis, or dissection in the major cervical arteries. There is aneurysmal enlargement of the right vertebral artery the V4 segment. 3. No occlusion, hemodynamically significant stenosis, aneurysm, dissection, or arteriovenous malformation in the major intracranial arteries. Assessment of stenosis of the internal carotid arteries is based on NASCET criteria. ACT 112: Negative or not required by law. Electronically signed by: Barrett Cunningham M.D. 08/16/2023 6:34 PM MRI brain (done just prior to admission): Brain MRI WITH AND WITHOUT CONTRAST HISTORY: Left sided hearing loss. [id number] - TECHNIQUE: Multiplanar multisequence MRI of the brain was performed both before and after the intravenous administration of contrast. COMPARISON STUDY: Head CT 10/15/2021. FINDINGS: Small linear focus of restricted diffusion within the left frontal lobe white matter best seen on image 20. This is consistent with an acute infarct. This measures approximate 14 x 5 mm. The midline structures are intact. The orbits are unremarkable. The paranasal sinuses and mastoid air cells are clear. The major vascular flow-voids at the skull base are well-maintained. The ventricles and sulci demonstrate mild age-related involutional changes. There is no mass, hematoma, midline shift, or acute infarct. Scattered foci of T2 hyperintensity within the periventricular and subcortical white matter are nonspecific but favor mild microvascular ischemic change given the patient's age. Postcontrast sequences show no areas of abnormal enhancement. The 7th and 8th cranial nerves are normal in course and caliber. No evidence for inner ear dysplasia. No abnormal enhancement or masses within the bilateral internal auditory canals. IMPRESSION: 1. A 14 x 5 mm linear acute infarct involving the left frontal lobe white matter. 2. Normal bilateral internal auditory canals. 3. This report was called/faxed to the referring physician following dictation. ACT 112: Negative or not required by law. Electronically signed by: Carloz Zhang M.D. 08/16/2023 11:07 AM Dictated: 08/16/231057 Transcribed: 08/16/231057 Hospital Course (1) Stroke: Outpatient MRI of the brain had been obtained due to hearing loss. The MRI was focused on his auditory canals because of left-sided hearing loss. Auditory canals were negative for masses/acoustic neuroma. Instead, MRI showed a small left frontal lobe stroke. Patient denied any specific symptoms from this stroke but his felt that he had been off balance some over the previous 1-2 weeks. Also some question of slurred speech. He had neither of these symptoms while hospitalized. CTA head and neck were negative except for incidental note of a 5mm aneurysm of the right vertebral artery. Echocardiogram did not show a source of thrombus. Telemetry was normal - specifically, no a.fib or a.flutter seen. He was continued on aspirin and plavix was added. He was continued on atorvastatin. His dose was increased from 20mg to 40mg as his LDL was 83. HDL was 26. Triglycerides were 268. PT, OT, and speech therapy saw him in consult. No outpatient services will be needed as he is essentially asymptomatic from this small stroke. Recommendations at discharge - 1. aspirin 81mg daily x 21 days then STOP 2. clopidogrel 75mg once daily indefinitely 3. increase atorvastatin to 40mg once daily 4. 30-day event monitor as outpatient - r/o PAF 5. routine referral to a neuro-vascular specialist for the right vertebral artery aneurysm (2) Type 2 diabetes mellitus with albuminuria: Hemoglobin A1C 6.2% this admission HOLD metformin at discharge due to IV contrast used for CT He will need a repeat creatinine in 48 hours post-discharge to ensure stability If creatinine remains stable can resume metformin at that time (3) Ischemic cardiomyopathy: EF 50-55% on echo this admission Continue coreg Continue olmesartan Was compensated his entire stay (4) CAD (coronary artery disease): Typically on aspirin, carvedilol, olmesartan, atorvastatin Follows with Dr Liu Villanueva, [facility] No recent ischemic symptoms (5) Peripheral neuropathy: Continue gabapentin per prior dosing Vitamin B12 level was wnl Neuropathy due to diabetes ? 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 stroke of the left frontal lobe of the brain - exact cause uncertain 2. aneurysm of the right vertebral artery - follow-up with a neuro-vascular specialist is needed 3. coronary artery disease 4. high cholesterol Activity: As commented below Activity Comment: no strenuous activities for at least 1 week Sexual Activity: Wait until after follow-up appointment Exercise/Sports: Wait until after follow-up appointment Driving/Machine Use: No driving until you see your family doctor in 1 week Non-emergency contact: Primary Care Provider and Lubrication Worker Call non-emergency contact if: you have any medication questions and your symptoms worsen Follow-up/Referrals: Liu Villanueva MD [Physician] - (see Dr Villanueva within the next few weeks to discuss your shortness of breath) Geri Banks MD [Primary Care Provider] - 08/24/23 10:30 am (APPT. with Chano Young PA-C) Diet: Heart Healthy Judy Attending Provider Instructions: Mr Hector, You were hospitalized after an outpatient MRI brain showed a small stroke in the front of the brain on the left. You underwent additional testing including CT scans of the arteries of the head & neck, echocardiogram, etc. We did not find a cause of your stroke on these additional scans. It is possible that the stroke was due to a small blocked artery in the front of the brain. We cannot see small arteries on most CT scans, etc. Incidentally we found a mild aneurysm in the back of the head in the right vertebral artery. This was an incidental finding and not the cause of your stroke. You will need follow-up for this with a neuro-vascular specialist - [place] or [place]. At this time we recommend - 1. INCREASE your cholesterol medication (atorvastatin) to 40mg once daily. 2. START plavix (clopidogrel) 75mg once daily for stroke prevention. Take your first dose tomorrow. 3. TAKE aspirin 81mg daily x 21 days then STOP/DISCONTINUE at that time. 4. Take it easy until you see your family doctor in follow-up. No driving until you see your family doctor. 5. We will mail a 30-day heart monitor to your home. This will be completed to detect a.fib and other heart rhythms that can cause stroke. Results will be forwarded to [facility] cardiology and your family doctor. 6. HOLD your metformin as you received IV contrast for your CT scans yesterday. You will need a repeat blood test in 1-2 days to ensure your kidney function is normal. You can have this lab drawn at the hospital's main lab. No need to fast. If the blood work is normal you will be able to resume your metformin later this week. 7. SEE Dr Villanueva - your pantry attendant - as soon as possible to discuss your shortness of breath with activity. Follow-up - see separate section It was our pleasure to care for you! Judy Paint Prepper Provider Instructions: Risk Factors for Stroke: You can reduce your chances of stroke by working with your medical provider to adopt a healthy lifestyle. Some specific ways to lower your chance of stroke are: * If you are a smoker, now is the time to stop smoking cigarettes * If you are diabetic, improve the control of your blood sugars * Avoid excessive amounts of alcohol * Control high blood pressure * Lose weight if you are overweight * Be sure to lead an active lifestyle * Eat a healthy diet low in salt, cholesterol and fat You should know about other risk factors for stroke that you are unable to control. These include: * Age 55 years or older * Male gender * Certain racial groups: , or / * Family History of Stroke, Mini stroke or Heart Attack * Sickle Cell Disease Follow Up: It is important for you to keep your follow up appointments with your medical provider. Who to Call and When: Medical Emergencies: Call 911 immediately if you experience any of the following warning signs and symptoms of Stroke: * Sudden numbness or weakness of the face, arm or leg, especially on one side of the body * Sudden confusion, trouble speaking or understanding * Sudden trouble seeing in one or both eyes * Sudden trouble walking, dizziness, loss of balance or coordination * Sudden severe headache with no cause Do not delay calling 911 if you experience any warning signs or symptoms of a stroke. Delay in seeking medical attention may affect what treatments can be given to you. . Pending Studies at Discharge: No Stand-Alone Forms: My [facility] [employer]-e-games, Smoking Cessation Medications and DC Order Prescriptions: New clopidogrel 75 mg Tablet 75 mg PO QAM Qty: 30 5RF Continued nitroglycerin [Nitrostat] 0.4 mg tablet, sublingual 0.4 mg sublingual Q5M PRN (Reason: Chest Pain) Rx Instructions: do not exceed 3 doses per episode carvedilol 25 mg tablet 25 mg PO BID Qty: 180 3RF Rx Instructions: must administer with a meal/food cyanocobalamin (vitamin B-12) [Vitamin B-12] 1,000 mcg Tablet 1,000 mcg PO QAM semaglutide 0.25 mg or 0.5 mg (2 mg/3 mL) Pen Injector 0.5 mg SUBCUT WK aspirin 81 mg tablet,delayed release (DR/EC) 81 mg PO QAM Qty: 21 0RF Rx Instructions: take for 3 weeks from time of hospital discharge then DISCONTINUE. Held metformin 500 mg tablet 2,000 mg PO QPM Hold Instructions: hold until your kidney function levels are repeated in 48 hours Discontinued atorvastatin 20 mg tablet 20 mg PO HS No Action gabapentin 300 mg capsule 900 mg PO UD Qty: 270 3RF Rx Instructions: Take 300mg in AM, 600mg in PM pantoprazole 20 mg tablet,delayed release (DR/EC) 20 mg PO DAILY Qty: 90 3RF Discharge Orders: Discharge Order (Routine); Ordered 08/17/23 Ordered By: Miko Palacio/Other Patient Handouts: Managing Type 2 Diabetes, Special Foot Care for Diabetes Admission Data Admit Date/Time: 08/16/23 16:31 Attending Provider: Miko Quinn Admit Provider: Miko Hay Primary Care Provider: Geri Banks Other Providers: Miko Hay Other Interventions: Discharge Summary Assessment (RN) Last Done: 08/17/23 17:27 Coding Level of Care Code 01197 INP/OBS DISCH >30 MIN Diagnoses Stroke I63.9 CVA mechanism: unspecified Type 2 diabetes mellitus with albuminuria E11.29; R80.9 Ischemic cardiomyopathy I25.5 CAD (coronary artery disease) I25.10 Peripheral neuropathy G62.9 GERD without esophagitis K21.9 Primary hypertension I10 Aneurysm of right vertebral artery I72.6 Dyspnea on exertion R06.09
--- NOTE | 2023-08-18 14:09 | Pharmacy Report ---
Pharmacist Stroke Counseling - Date of Service August 18, 2023 - Scope: Pharmacy has been consulted to provide medication discharge counseling for this patient admitted with [ischemic stroke] [hemorrhagic stroke] [transient ischemic attack] as per the Pharmacist Discharge Counseling for Stroke Patients Prot ocol. - Medications on Discharge: Home Medications Medication Instructions Recorded Confirmed nitroglycerin 0.4 mg sublingual 0.4 mg sublingual Q5M PRN Chest 09/03/21 08/16/23 tablet (Nitrostat) Pain cyanocobalamin (vitamin B-12) 1,000 mcg PO QAM 08/16/23 08/16/23 1,000 mcg tablet (Vitamin B-12) hydrochlorothiazide 25 mg tablet 25 mg PO QAM 08/16/23 08/16/23 metformin 500 mg tablet 2,000 mg PO QPM 08/16/23 08/16/23 olmesartan 40 mg tablet 40 mg PO HS 08/16/23 08/16/23 omeprazole 20 mg capsule,delayed 20 mg PO QAM 08/16/23 08/16/23 release semaglutide 0.25 mg or 0.5 mg (2 0.5 mg subcut WK 08/16/23 08/16/23 mg/3 mL) subcutaneous pen injector Medication Instructions Recorded carvedilol 25 mg tablet 25 mg PO BID #180 tabs 04/05/23 aspirin 81 mg tablet,delayed 81 mg PO QAM #21 tabs 08/17/23 release atorvastatin 40 mg tablet 40 mg PO DAILY #30 tabs 08/17/23 clopidogrel 75 mg tablet 75 mg PO QAM #30 tabs 08/17/23 gabapentin 300 mg capsule 900 mg (3 x 300 mg) PO UD #270 caps 08/17/23 - Action: The above medications, specifically ones for stroke treatment/prophylaxis, have been reviewed in detail with the patient and/or patient compliance representative(s) prior to discharge. This includes indication, common adverse reactions, drug inte ractions, and medication administration. Medication counseling has been employed using the teach-back method to ensure understanding. - Outcome: The patient and/or patient compliance representative(s) have demonstrated understanding of the medications. Additional comments: Spoke with patient over the phone to review discharge medications. He reports that he has been on plavix before in the past and is aware of the need for monitoring of any increase in bruising/bleeding. He is aware that aspirin is for only 3 weeks then to stop therapy. We did talk about the potential drug interaction with his plavix and omeprazole. He reports that his pharmacy where he fills the medications also alerted him to this interaction and he plans to bring this to his providers attention next week during his followup appt to see if they can switch to pantoprazole. He continues to hold metformin as directed on discharge due to receiving IV contrast and is getting labs drawn tomorrow to ensure renal function stable. Patient reports he is using a pill box for his medications. Patient aware to bring an updated medication list with him to his PCP visit next week. No other questions/concerns from patient at this time. Thank you for allowing pharmacy to be involved in the care of this patient. Please call [phone] with any additional questions
== END 2023-08-17 18:19 | disposition home or self-care (01) ==
LOC: EDINP 13:43 → ED 13:43 → SUATTDRO 16:31 → 2N 21:54
DX: E11.29 Type 2 diabetes mellitus with other diabetic kidney complication; I10 Essential (primary) hypertension; Z79.85 Long-term (current) use of injectable non-insulin antidiabetic drugs; Z79.899 Other long term (current) drug therapy; Z79.84 Long term (current) use of oral hypoglycemic drugs; Z82.49 Family history of ischemic heart disease and other diseases of the circulatory system; I25.10 Atherosclerotic heart disease of native coronary artery without angina pectoris; E11.42 Type 2 diabetes mellitus with diabetic polyneuropathy; I72.6 Aneurysm of vertebral artery; Z79.82 Long term (current) use of aspirin; I25.5 Ischemic cardiomyopathy; K21.9 Gastro-esophageal reflux disease without esophagitis; I63.9 Cerebral infarction, unspecified; E78.5 Hyperlipidemia, unspecified; Z87.891 Personal history of nicotine dependence; H90.A22 Sensorineural hearing loss, unilateral, left ear, with restricted hearing on the contralateral side; Z23 Encounter for immunization

== ENCOUNTER 2024-02-06 12:12 | Inpatient (IN) ==
[2024-02-06] MEDS: SODIUM CHLORIDE 0.9% 1,000 ML IV SCH (12:58)
[2024-02-06 13:00] LABS: Basophils # (auto) 0.04 K/uL (0.00-0.20); Basophils % (auto) 0.5 %; Eosinophils # (auto) 0.15 K/uL (0.00-0.50); Hemoglobin 17.3 g/dl (14.0-18.0); Immature Granulocytes # (auto) 0.03 K/uL (0.01-0.20); Immature Granulocytes % (auto) 0.4 %; Mean Corpuscular Hemoglobin 30.4 pg (25.0-34.0); Mean Corpuscular Hgb Conc 33.3 g/dL (32.0-36.0); Mean Corpuscular Volume 91.4 fL (80.0-100.0); Mean Platelet Volume 9.4 fL (9.4-12.4); Monocytes # (auto) 0.91 K/uL (0.11-0.59); Monocytes % (auto) 12.2 %; Neutrophils # (auto) 5.44 K/uL (1.40-6.50); Neutrophils % (auto) 72.9 %; Platelet Count 200 K/uL (130-400); RDW Coefficient of Variation 15.2 % (11.5-14.5); RDW Standard Deviation 50.4 fL (36.4-46.3); Red Blood Count 5.69 M/uL (4.70-6.10); White Blood Count 7.47 K/ul (4.8-10.8)
[2024-02-06 13:16] LABS: Albumin Globulin Ratio 1.4 (0.9-2); Albumin Level 4.5 gm/dl (3.4-5.0); Bilirubin,Total 0.8 mg/dl (0.2-1.0); Calcium 9.5 mg/dl (8.6-10.3); Creatinine Clr Calc Pharmacy 13.7 ml/min; Est GFR (African American) 11.5 ml/min; Est GFR (Non-African American) 9.9 ml/min; Globulin 3.3 gm/dl (2.5-4.0); Potassium 5.7 mmol/L (3.5-5.1); Total Protein 7.8 gm/dl (6.0-8.3)
[2024-02-06] MEDS: CALCIUM GLUCONATE 1,000 MG/60 ML BAG IV STA ×2 (13:29→20:43)
--- NOTE | 2024-02-06 13:45 | Emergency Department Note ---
Impression & Plan Acute renal failure with oliguria, Acute hyperkalemia, Diarrhea, Dehydration, Hypotension ED Provider Note NAME: CHANTELL FRANKEL AGE: 73 SEX: M : 1950 ARRIVES VIA: Walk-In INFORMANT: Patient, ED PROVIDER(S): Olaf Donnelly MD CHIEF COMPLAINT: Dehydration, diarrhea HPI: This is a 73-year-old male presenting for dehydration, diarrhea. Patient states that for the past 5 to 6 days he has had profuse diarrhea multiple times per day initially, now becoming less frequent. He thinks he had had 1 episode of urination in the past few days. His states he has been sleeping and otherwise not his usual self. He is very fatigued, sleeping on the couch and not interested in usual activities. He states he was lightheaded, dizzy. At triage apparently he was diaphoretic and pale as per triage nurse. Patient has no actual pain in his abdomen or back. ROS: See above HPI for pertinent positives & negatives. A total of 10 systems reviewed and were otherwise negative. PHYSICAL EXAMINATION: General: Fatigued, resting comfortably in no acute distress Head: Normocephalic and atraumatic Eyes: Normal inspection, extraocular muscles intact Ear, nose, throat: Normal external exam Neck: Normal range of motion Respiratory: lungs clear to auscultation bilaterally Cardiovascular: Regular rate/rhythm, no murmur GI: soft, nontender, no guarding or rebound Extremities: nontender, moves all extremities Neuro: The patient awake and alert, appropriately conversive, no focal deficits, symmetric faces Skin: Warm, dry, and intact MEDICAL DECISION MAKING: This is a 71-year male presented for dehydration and diarrhea. Patient does appear fatigued but otherwise is easily arousable. He is having reassuring vital signs aside for hypotension. Initially low 100s. Upon recheck it was in the 70s systolic. I was alerted to bedside by nurse. Second point of access gained and given 2 L for his hypotension. Pressure did come up and in the 90s does not look at this time. -Blood work reveals no current leukocytosis or anemia -Patient has new acute renal failure, creatinine is over 5 at this time with potassium of 5.7. BUN/creatinine ratio over 20. Patient not bradycardic at this time and EKG is as below showed no acute EKG hyperkalemic changes at this time. -Will order calcium gluconate for cardiac stabilization at this time. -Will discuss with nephrology for further planning -Discussed with Dr. Govea, nephrology, recommends fluid resuscitation and correcting the electrolyte abnormality. -Discussed with Dr. Serrano, and Rosalio Gibson PA-C for admission. Differential diagnosis: C. difficile, dehydration, sepsis, renal failure, electrolyte disturbances ER treatment provided: See below Diagnostics interpreted by me: ECG: ECG independently interpreted by me with normal sinus rhythm, rate of 85, normal axis, normal ND, normal QRS, normal QTc, no ST segment elevations consistent with STEMI criteria Cardiac Monitoring: An order was placed for continuous cardiac monitoring. The monitor shows a rate of 82 with sinus rhythm. Laboratory studies: As stated above and show below. Imaging studies: See below. Critical Care Note: I have personally spent 45 minutes of critical care time in the direct management of this patient. This includes bedside care, interpretation of diagnostic studies, and testing, discussion with consultants, patient, and family members, and other required patient management activities. This 45 minutes is in excess of all separately billable procedures. Past Med/Surg History Problem List (Updated 02/06/24 @ 14:50 by Olaf Donnelly MD) Hypotension (Acute) Dehydration (Acute) Diarrhea (Acute) Acute hyperkalemia (Acute) Acute renal failure with oliguria (Acute) Encounter for interrogation of cardiac recorder Cryptogenic stroke Type 2 diabetes mellitus with obesity GERD without esophagitis Dyspnea on exertion Aneurysm of right vertebral artery Sensorineural hearing loss (SNHL) of left ear with restricted hearing of right ear Bilateral hearing loss Obesity (BMI 30-39.9) 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 Ischemic cardiomyopathy Hyperlipidemia CAD (coronary artery disease) Primary hypertension COPD (chronic obstructive pulmonary disease) Peripheral neuropathy Tendinopathy of gluteus medius Greater trochanteric bursitis Strain of calf muscle Medical History Cryptogenic stroke Type 2 diabetes mellitus with obesity Obesity (BMI 30-39.9) 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 GERD without esophagitis Peripheral neuropathy COPD (chronic obstructive pulmonary disease) Primary hypertension CAD (coronary artery disease) Atypical chest pain Hyperlipidemia Ischemic cardiomyopathy Surgical History S/P cardiac catheterization Family History Mother Heart disease Myocardial infarction Hypertension Father Alcoholism Sister COPD (chronic obstructive pulmonary disease) Brother Coronary heart disease Other No family history of adverse response to anesthesia No family history of bleeding disorder Denies family history of Ovarian cancer Prostate cancer Breast cancer Colorectal cancer Social History Smoking Status: Former smoker Tobacco Type: Cigarettes packs per day: 1; Second Hand Exposure: No; Do You Dip or Chew Tobacco: No; Hx Alcohol Use: No Hx Substance Use: No Preferred Language: Tamazight Communication Ability: Effective Survey Research Analyst Required: No Beliefs That Will Affect Care: None marital status: Current Living Situation: Spouse current occupational status: 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, 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 Feels Safe at Home: Yes Childhood Exposure to Second-Hand Smoke: Yes caffeine: Yes (Coffee, Carbonated beverage, 1 daily) Dental Care, Regularly: Yes Physical Activity Frequency: 3-4 Times per Week Physical Activity Frequency Comment: Walking Seatbelt Use: always Sunscreen Use: No Assistive Devices: None Allergies Allergies Allergy/AdvReac Type Severity Reaction Status Date / Time No Known Drug Allergies Allergy n/a Unverified 01/27/24 07:54 Home Meds Home Medications Medication Instructions Recorded Confirmed nitroglycerin 0.4 mg sublingual 0.4 mg sublingual Q5M PRN Chest 09/03/21 02/06/24 tablet (Nitrostat) Pain cyanocobalamin (vitamin B-12) 1,000 mcg PO QAM 08/16/23 02/06/24 1,000 mcg tablet (Vitamin B-12) metformin 500 mg tablet 2,000 mg PO QPM 08/16/23 02/06/24 semaglutide 1 mg/dose (4 mg/3 mL) 1 mg subcut UD 02/06/24 02/06/24 subcutaneous pen injector Previous Rx's Medication Instructions Recorded gabapentin 300 mg capsule 900 mg (3 x 300 mg) PO UD #270 caps 08/23/23 atorvastatin 40 mg tablet 40 mg PO DAILY #90 tabs 10/14/23 carvedilol 25 mg tablet 25 mg PO BID #180 tabs 10/14/23 clopidogrel 75 mg tablet 75 mg PO QAM #90 tabs 10/14/23 hydrochlorothiazide 25 mg tablet 25 mg PO DAILY PRN take for SBP 10/14/23 >140 #90 tabs olmesartan 40 mg tablet 40 mg PO DAILY #90 tabs 10/14/23 pantoprazole 20 mg tablet,delayed 20 mg PO DAILY #90 tabs 10/14/23 release lidocaine 3 % topical cream 1 applic topical BID PRN pain 01/27/24 #28.35 grams Results & Data (ED) Vital Signs Vital Signs - 24 hr 02/06/24 12:16 02/06/24 12:30 02/06/24 12:40 Temperature 36.6 C Temperature Source Oral Pulse Rate 93 H 88 Pulse Rate [Apical] Pulse Rhythm Regular Pulse Strength Normal Respiratory Rate 18 Respiratory Effort / Characteristics Non-Labored Spontaneous Respiratory Depth Normal Respiratory Pattern Regular Blood Pressure 102/72 Blood Pressure [Left Arm] Blood Pressure Mean 82 Blood Pressure Mean [Left Arm] Blood Pressure Position Sitting Pulse Oximetry 95 Oxygen Delivery Method Room Air Sepsis Recent Fever Within 48 Hours No Sepsis New/Unexplained Change in Mental Status No Sepsis Action Taken by Nursing No Action Required 02/06/24 12:49 02/06/24 12:56 02/06/24 13:31 Temperature Temperature Source Pulse Rate 88 Pulse Rate [Apical] 84 Pulse Rhythm Pulse Strength Respiratory Rate 20 18 Respiratory Effort / Characteristics Non-Labored Spontaneous Respiratory Depth Normal Respiratory Pattern Blood Pressure Blood Pressure [Left Arm] 81/55 L 97/67 L Blood Pressure Mean Blood Pressure Mean [Left Arm] 63 77 Blood Pressure Position Pulse Oximetry 99 99 Oxygen Delivery Method Room Air Room Air Sepsis Recent Fever Within 48 Hours Sepsis New/Unexplained Change in Mental Status Sepsis Action Taken by Nursing 02/06/24 13:50 02/06/24 14:15 Temperature Temperature Source Pulse Rate Pulse Rate [Apical] 80 80 Pulse Rhythm Pulse Strength Respiratory Rate 16 18 Respiratory Effort / Characteristics Respiratory Depth Respiratory Pattern Blood Pressure Blood Pressure [Left Arm] 101/76 108/67 Blood Pressure Mean Blood Pressure Mean [Left Arm] 84 80 Blood Pressure Position Pulse Oximetry 99 100 Oxygen Delivery Method Room Air Room Air Sepsis Recent Fever Within 48 Hours Sepsis New/Unexplained Change in Mental Status Sepsis Action Taken by Nursing Laboratory Data 02/06/24 12:42 02/06/24 12:42 Lab Results 02/06/24 02/06/24 Range/Units 12:42 14:28 WBC 7.47 (4.8-10.8) K/ul RBC 5.69 (4.70-6.10) M/uL Hgb 17.3 (14.0-18.0) g/dl Hct 52.0 (42.0-52.0) % MCV 91.4 (80.0-100.0) fL MCH 30.4 (25.0-34.0) pg MCHC 33.3 (32.0-36.0) g/dL RDW Std Deviation 50.4 H (36.4-46.3) fL RDW Coeff of [place] 15.2 H (11.5-14.5) % Plt Count 200 (130-400) K/uL MPV 9.4 (9.4-12.4) fL Immature Gran % (Auto) 0.4 % Neut % (Auto) 72.9 % Lymph % (Auto) 12.0 % [place] % (Auto) 12.2 % Eos % (Auto) 2.0 % Baso % (Auto) 0.5 % Neut # (Auto) 5.44 (1.40-6.50) K/uL Lymph # (Auto) 0.90 L (1.20-3.40) K/uL [place] # (Auto) 0.91 H (0.11-0.59) K/uL Eos # (Auto) 0.15 (0.00-0.50) K/uL Baso # (Auto) 0.04 (0.00-0.20) K/uL Immature Gran # (Auto) 0.03 (0.01-0.20) K/uL VBG pH 7.19 L (7.36-7.41) VBG pCO2 44 (38-50) mmHg VBG pO2 29 mmHg VBG HCO3 17 mmol/L VBG O2 Saturation < 60.0 % VBG Base Excess -11.1 mEq/L Sodium 132 L (136-145) mmol/L Potassium 5.7 H (3.5-5.1) mmol/L Chloride 102 (98-107) mmol/L Carbon Dioxide 19 L (21-32) mmol/L Anion Gap 11 (3-11) BUN 117 H (6-23) mg/dl Creatinine 5.32 H* (0.6-1.4) mg/dl Est Cr Clr Drug Dosing 13.7 ml/min Est GFR ( Amer) 11.5 ml/min Est GFR (Non-Af Amer) 9.9 ml/min BUN/Creatinine Ratio 22.0 H (10-20) Glucose 124 H (70-99(Fasting)) mg/dl Lactate 2.1 H* (0.4-2.0) mmol/L Calcium 9.5 (8.6-10.3) mg/dl Phosphorus 5.0 H (2.5-4.9) mg/dl Magnesium 2.3 (1.7-2.4) mg/dl Total Bilirubin 0.8 (0.2-1.0) mg/dl AST 6 L (13-39) U/L ALT 8 (7-52) U/L Alkaline Phosphatase 95 (34-104) U/L Total Protein 7.8 (6.0-8.3) gm/dl Albumin 4.5 (3.4-5.0) gm/dl Globulin 3.3 (2.5-4.0) gm/dl Albumin/Globulin Ratio 1.4 (0.9-2) Lipase 115 H (11-82) U/L Administered Medications Discontinued Medications Dextrose (Dextrose 50% 50 Ml Syringe) 50 ml IV NOW STA Stop: 02/06/24 13:46 Last Admin: 02/06/24 14:12 Dose: 50 ml Documented By: GAYLA Sodium Chloride (Nss) 1,000 mls @ 999 mls/hr IV .Q1H1M MANI Stop: 02/06/24 14:30 Last Infusion: 02/06/24 14:16 Dose: Infused Documented By: Admin: 02/06/24 13:29 Dose: 999 mls/hr Documented By: Infusion: 02/06/24 13:29 Dose: Infused Documented By: Admin: 02/06/24 12:58 Dose: 999 mls/hr Documented By: GAYLA Calcium Gluconate () 1,000 mg in 60 mls @ 240 mls/hr IV NOW STA Stop: 02/06/24 13:32 Last Infusion: 02/06/24 13:47 Dose: Infused Documented By: Admin: 02/06/24 13:29 Dose: 240 mls/hr Documented By: GAYLA Insulin Human Regular 10 units (/ Syringe) 10 mls @ 3 mls/sec IV ONE STA Stop: 02/06/24 13:46 Last Admin: 02/06/24 14:12 Dose: 3 mls/sec Documented By: GAYLA Co-signed By: HAZEL Discharge Plan Visit Data Chief Complaint: Diarrhea Stated Complaint: DIARRHEA, LOST BALANCE IN WAITING ROOM ED Provider: Olaf Donnelly Discharge Problem: Acute renal failure with oliguria, Acute hyperkalemia, Diarrhea, Dehydration, Hypotension Forms Stand Alone Forms: My [facility] [place] Prescriptions Prescriptions: No Action gabapentin 300 mg capsule 900 mg PO UD Qty: 270 3RF Rx Instructions: Take 300mg in AM, 600mg in PM olmesartan 40 mg tablet 40 mg PO DAILY Qty: 90 3RF atorvastatin 40 mg tablet 40 mg PO DAILY Qty: 90 3RF carvedilol 25 mg tablet 25 mg PO BID Qty: 180 3RF Rx Instructions: must administer with a meal/food clopidogrel 75 mg tablet 75 mg PO QAM Qty: 90 3RF hydrochlorothiazide 25 mg tablet 25 mg PO DAILY PRN (Reason: take for SBP >140) Qty: 90 3RF Rx Instructions: Take for SBP >140 pantoprazole 20 mg tablet,delayed release (DR/EC) 20 mg PO DAILY Qty: 90 3RF nitroglycerin [Nitrostat] 0.4 mg tablet, sublingual 0.4 mg sublingual Q5M PRN (Reason: Chest Pain) Rx Instructions: do not exceed 3 doses per episode lidocaine 3 % cream 1 applic topical BID PRN (Reason: pain) Qty: 28.35 3RF Rx Instructions: For discomfort over loop recorder cyanocobalamin (vitamin B-12) [Vitamin B-12] 1,000 mcg Tablet 1,000 mcg PO QAM metformin 500 mg tablet 2,000 mg PO QPM Hold Instructions: hold until your kidney function levels are repeated in 48 hours semaglutide 1 mg/dose (4 mg/3 mL) pen injector 1 mg SUBCUT UD Rx Instructions: No fill history Referrals Referrals: Geri Banks MD [Primary Care Provider] -
--- NOTE | 2024-02-06 14:02 | History & Physical Report ---
Date of Service February 06, 2024 Assessment & Plan (1) Acute renal failure with oliguria: Plan: -Admit to the PCU on tele and pulse oximetry -Currently stable and non-toxic appearing -Presented to the ED with ongoing diarrhea, dehydration and weakness -Cr today is 5.32, baseline is near 1.2 -Patient with reported little urine output at home, had 45 cc on bladder scan on arrival -At this time his acute renal failure with oliguria is likely multifactorial including dehydration from ongoing diarrhea and ongoing HCTZ and Olmesartan use while dehydrated -Will follow UA when obtained -S/P 2L NSS in the ED, due to his metabolic acidosis with AG WNL we will begin maintenance Sodium bicarbonate in sterile water x 2 bags for now >Will adjust IV fluids based on repeat labs throughout the day -Will obtain repeat bladder scan and place tinajero catheter if the patient is not able to void as we will need to monitor urine output closely moving forward -Will obtain renal/bladder US to monitor for obstruction -Nephrology consult placed -Monitor intake/output q6h -Will trend BMP, mag, phos, and VBG q4h overnight -HH/DMII diet with low potassium for now -SQ heparin for DVT PPX -AM CBC, BMP, mag, PT/INR (2) Metabolic acidosis with normal anion gap and bicarbonate losses: Plan: -Patient's VBG noted to have a pH of 7.19, pCO2 of 44, and pO2 of 29 -AG WNL, bicarb of 19, lactate of 2.1 -Likely being driven by dehydration, bicarbonate losses from diarrhea, and elevated lactate -Will start 150 meq IV sodium bicarbonate in sterile water at 125 mL/hr x 2 bags on admission -Will continue to trend BMP, mag, Phos, and VBG q4h overnight and adjust IV fluids as needed -Will follow repeat lactate -Continue to monitor on tele (3) Type 2 diabetes mellitus with obesity: Plan: -Hold metformin, Semaglutide -Monitor BSG ACHS , goal is 110-160 -Start CF 50 and CR 15 ACHS for now -Will hold basal insulin for now to avoid hypoglycemia with his renal failure -Adjust regimen as needed (4) Acute hyperkalemia: Plan: -Potassium of 5.7 on arrival -Patient does have mildly peaked T-waves when ECG today is compared to last in Aug -S/I 1gm IV calcium gluconate and 2L NSS in the ED -Patient was given 10 units IV insulin and 50 mL Dextrose on admission -Likely a combination of his renal failure, metabolic acidosis, and Olmesartan use with ongoing diarrhea -Will start maintenance sodium bicarbonate in sterile water at 125 ml/hr x 2 bags on admission -Will repeat 4 hour high sen trop and adjust treatment regimen as needed -Will continue I hydration and correction of his metabolic acidosis -Continue to monitor on tele, holding olmesartan -Monitor q4h BMP, mag, VBG (5) Slurred speech: Plan: -Patient's family has been noticing intermittent slurred speech and increased weakness left/right over the past 24-48 hours -Patient denies focal defects -His neuro exam is non-focal, does have intermittent slurred speech at times but not sure if this is due to neurologic defect, dry mucus membranes, and/or uremia at this time -Will obtain stat CT of the head/brain wo con now, can't obtain CTA's of the head/neck at this time with his renal failure -Will continue to monitor for improvement with treatment of his renal failure -Will need to see if his pacemaker is MRI compatible -Q4h neuro checks (6) Diarrhea: Plan: -Has had 6-10 episodes of non-bloody diarrhea daily for the past 7-10 days -Denies fever, no leukocytosis -Denies drinking well water or close contacts with symptoms recently -Denies recent abx use -Follow stool studies with C.diff toxin ordered on admission -Hod antidiarrheals until infectious source is ruled out -Continue supportive care (7) Hypotension: Plan: -Initially with systolics in the 80's on arrival -Currently stable at 114/78 after L NSS in the ED -Likely a combination of dehydration, ongoing diuretic use -Continue maintenance fluids, holding antihypertensives for now (8) COPD (chronic obstructive pulmonary disease): Plan: -Stable on RA, no wheezing on exam -Not on home breathing treatments -Start incentive spirometry and prn albuterol for now (9) CAD (coronary artery disease): Plan: -Continue plavix and statin Plan The patient was discussed with Dr. Serrano at the time of the admission History of Present Illness Chief Complaint: Diarrhea Primary Care Provider: Geri Banks MD Mike is a 73 year old male with a PMH significant for CAD s/p LAD BMS 2006, s/p RCA HELENE 2015, Ischemic Cardiomyopathy (LVEF 50-55% as of 08/2023), Hypertension, Dyslipidemia, Type 2 Diabetes Mellitus, Right Vertebral Artery Aneurysm, COPD, and Cryptogenic Stroke s/p [employer] LNQ II ILR Implantation 10/13/23 who presented to the [facility] ED on 02/06/24 with a chief complaint of ongoing diarrhea over the past 5-6 days. He was noted to be hypotensive on arrival at 81/55 and tachycardic at 93 but otherwise stable. Labs were significant for a Cr of 5.32 (baseline is 1.20), BUN of 117, bicarb of 19 with AG WNL, lactate of 2.1, potassium of 5.7, sodium of 132. Prior to admission the patient was given 2L NSS and 1gm IV calcium gluconate. The ED staff spoke with Nephrology who recommended medicine admission with ongoing IV fluids for now. On review, he does of mildly peaked T- waves on ECG today compared to 08/16/23. At the time of the exam the patient was sitting in bed in no acute distress with his , daughter, and son-in-law bedside, history was obtained from all. The patient has been experiencing 6-10 episodes of loose, non-bloody diarrhea for the past 7-10 days. Denies recent antibiotic use but recently completed a prednisone taper fro acute gout flare. He did complete the course of prednisone and his gout flare resolved. Has had poor oral intake, very little urine output over the past 24-48 hours. Denies recent fever, chills, chest pain, cough, SOB, abd pain, nausea, vomiting, dysuria, hematuria, melena, LE swelling, and recent trauma. When asked, they confirm that he has been taking all home medications as prescribed with these symptoms including his HCTZ and olmesartan. His family is concerned he may have had another stroke over the past 48-72 hours as they have noted slurred speech at time and they noted he was having LLE weakness while waking into the ED today. The patient denies focal neuro defects at the time of my exam and states his only complaint is being hungry. We discussed code status, the patient wishes to be a DNR/DNI and for his to make medical decisions for him if he cannot make them himself. Please refer to Dr. Serrano's attestation for any changes to the treatment plan Allergies Allergy/AdvReac Type Severity Reaction Status Date / Time No Known Drug Allergies Allergy n/a Unverified 01/27/24 07:54 Home Medications Medication Instructions Recorded Confirmed Type nitroglycerin 0.4 mg sublingual 0.4 mg sublingual Q5M PRN Chest 09/03/21 02/06/24 History tablet (Nitrostat) Pain cyanocobalamin (vitamin B-12) 1,000 mcg PO QAM 08/16/23 02/06/24 History 1,000 mcg tablet (Vitamin B-12) metformin 500 mg tablet 2,000 mg PO QPM 08/16/23 02/06/24 History gabapentin 300 mg capsule 900 mg (3 x 300 mg) PO UD #270 caps 08/23/23 02/06/24 Rx atorvastatin 40 mg tablet 40 mg PO DAILY #90 tabs 10/14/23 02/06/24 Rx carvedilol 25 mg tablet 25 mg PO BID #180 tabs 10/14/23 02/06/24 Rx clopidogrel 75 mg tablet 75 mg PO QAM #90 tabs 10/14/23 02/06/24 Rx hydrochlorothiazide 25 mg tablet 25 mg PO DAILY PRN take for SBP 10/14/23 02/06/24 Rx >140 #90 tabs olmesartan 40 mg tablet 40 mg PO DAILY #90 tabs 10/14/23 02/06/24 Rx pantoprazole 20 mg tablet,delayed 20 mg PO DAILY #90 tabs 10/14/23 02/06/24 Rx release lidocaine 3 % topical cream 1 applic topical BID PRN pain 01/27/24 02/06/24 Rx #28.35 grams semaglutide 1 mg/dose (4 mg/3 mL) 1 mg subcut UD 02/06/24 02/06/24 History subcutaneous pen injector Past Med/Surg History Problem List (Updated 02/06/24 @ 14:55 by Rosalio Gibson PA-C) Slurred speech Metabolic acidosis with normal anion gap and bicarbonate losses Hypotension (Acute) Dehydration (Acute) Diarrhea (Acute) Acute hyperkalemia (Acute) Acute renal failure with oliguria (Acute) Encounter for interrogation of cardiac recorder Cryptogenic stroke Type 2 diabetes mellitus with obesity GERD without esophagitis Dyspnea on exertion Aneurysm of right vertebral artery Sensorineural hearing loss (SNHL) of left ear with restricted hearing of right ear Bilateral hearing loss Obesity (BMI 30-39.9) 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 Ischemic cardiomyopathy Hyperlipidemia CAD (coronary artery disease) Primary hypertension COPD (chronic obstructive pulmonary disease) Peripheral neuropathy Tendinopathy of gluteus medius Greater trochanteric bursitis Strain of calf muscle Medical History Cryptogenic stroke Type 2 diabetes mellitus with obesity Obesity (BMI 30-39.9) 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 GERD without esophagitis Peripheral neuropathy COPD (chronic obstructive pulmonary disease) Primary hypertension CAD (coronary artery disease) Atypical chest pain Hyperlipidemia Ischemic cardiomyopathy Surgical History S/P cardiac catheterization Family History Mother Heart disease Myocardial infarction Hypertension Father Alcoholism Sister COPD (chronic obstructive pulmonary disease) Brother Coronary heart disease Other No family history of adverse response to anesthesia No family history of bleeding disorder Denies family history of Ovarian cancer Prostate cancer Breast cancer Colorectal cancer Social History Smoking Status: Former smoker Tobacco Type: Cigarettes packs per day: 1; Second Hand Exposure: No; Do You Dip or Chew Tobacco: No; Hx Alcohol Use: No Hx Substance Use: No Preferred Language: Portuguese Communication Ability: Effective [employer] Required: No Beliefs That Will Affect Care: None marital status: Current Living Situation: Spouse current occupational status: retired 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, 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 Feels Safe at Home: Yes Childhood Exposure to Second-Hand Smoke: Yes caffeine: Yes (Coffee, Carbonated beverage, 1 daily) Dental Care, Regularly: Yes Physical Activity Frequency: 3-4 Times per Week Physical Activity Frequency Comment: Walking Seatbelt Use: always Sunscreen Use: No Assistive Devices: None Physical Exam Physical Exam: Physical Exam: General: In no acute distress, stated age, chronically ill appearing but non- toxic HEENT: Normocephalic, atraumatic, no scleral icterus, pupils around round, symmetrical, and reactive to light, dry mucus membranes, no JVD, trachea midline, no thyromegaly Chest/Pulm: No respiratory distress, symmetrical chest expansion, clear breath sounds throughout Cardiac: RRR, no murmurs noted Abdomen: Negative for ascites and bruising, normoactive bowel sounds, soft, non-tender to palpation throughout Musculoskeletal: Symmetrical and without signs of acute trauma, upper and lower extremities with full ROM, no atrophy, spasticity, or flaccidity Extremities: Radial, dorsalis pedis, and posterior tibial pulses are intact and symmetrical, no edema noted in the BL LE's Skin: Warm, dry, no rashes , lesions, or scars noted Neuro: Alert and oriented to person, place, month, year, no focal defects, CN II-XII tested and intact, Negative cerebellar and pronator drift in the BL upper extremities, no tremors noted Psych: No acute distress, calm and cooperative during the exam Results & Data Results & Data Vital Signs (Past 12 Hours) Vital Signs Temp Pulse Pulse Resp BP BP Pulse Ox 02/06/24 13:50 80 16 101/76 99 02/06/24 13:31 84 18 97/67 L 99 02/06/24 12:56 81/55 L 02/06/24 12:49 88 20 99 02/06/24 12:40 88 02/06/24 12:30 36.6 C 02/06/24 12:16 93 H 18 102/72 95 O2 Del Method 02/06/24 13:50 Room Air 02/06/24 13:31 Room Air 02/06/24 12:56 02/06/24 12:49 Room Air 02/06/24 12:40 02/06/24 12:30 02/06/24 12:16 Room Air Laboratory Results Abnormal lab results 02/06/24 02/06/24 Range/Units 12:42 14:28 RDW Std Deviation 50.4 H (36.4-46.3) fL RDW Coeff of [place] 15.2 H (11.5-14.5) % Lymph # (Auto) 0.90 L (1.20-3.40) K/uL [place] # (Auto) 0.91 H (0.11-0.59) K/uL VBG pH 7.19 L (7.36-7.41) Sodium 132 L (136-145) mmol/L Potassium 5.7 H (3.5-5.1) mmol/L Carbon Dioxide 19 L (21-32) mmol/L BUN 117 H (6-23) mg/dl Creatinine 5.32 H* (0.6-1.4) mg/dl BUN/Creatinine Ratio 22.0 H (10-20) Glucose 124 H (70-99(Fasting)) mg/dl Lactate 2.1 H* (0.4-2.0) mmol/L Phosphorus 5.0 H (2.5-4.9) mg/dl AST 6 L (13-39) U/L Lipase 115 H (11-82) U/L Diagnostic Findings Head CT 02/06/24 14:28 CT OF THE HEAD WITHOUT CONTRAST CLINICAL HISTORY: slurred speech, left LE weakness COMPARISON STUDY: MRI of the brain August 16, 2023. Head CT and CTA of the head August 16, 2023. CT DOSE: 625.8 mGy.cm TECHNIQUE: Helical axial images of the head were obtained without IV contrast. Automated exposure control was utilized for the study. A dose lowering technique was utilized adhering to the principles of ALARA. FINDINGS: No acute intracranial hemorrhage, midline shift or mass effect is present. The ventricular system is stable. White matter hypodensities are similar to prior exam and favor small vessel disease. Small hypodensities within the posterior limb of the right internal capsule and right thalamus are unchanged. The basal cisterns are patent. No extra-axial collections are present. There are no findings to suggest acute dural sinus thrombosis or acute territorial infarct. No significant calvarial abnormalities are present. Visualized portions of the sinuses and mastoid air cells are clear. IMPRESSION: No acute intracranial findings. No change in appearance of the brain. ACT 112: Negative or not required by law. Electronically signed by: Tommy Greer M.D. 02/06/2024 2:50 PM ECG Additional Comments: Normal sinus rhythm Low voltage QRS Inferior infarct (cited on or before 16-AUG-2023) Cannot rule out Anterior infarct (cited on or before 16-AUG-2023) Abnormal ECG When compared with ECG of 16-AUG-2023 14:22, No significant change was found Code Status & VTE Plan Code Status DNR/DNI VTE Prophylaxis Plan VTE Prophylaxis will be ordered: Yes Supervising Physician Co-Signing Physician Notes Patient seen and examined, chart reviewed, case discussed with Rosalio Gibson, TRISTEN and I agree with the assessment and plan as above except as otherwise noted Labs and images reviewed 73-year-old male with no past history of renal failure who presents with 5 to 6 days of severe diarrhea several times per day gradually improving, but with oliguria in the last day and who has had progressive fatigue, lightheadedness, and weakness. He has a past history of ischemic cardiomyopathy on atorvastatin/Plavix/carvedilol/hydrochlorothiazide/olmesartan. Does not have a history of renal disease. Baseline creatinine is approximately 1.3. Creatinine on admission 5.32. Patient has acute renal failure with severe volume contraction due to GI/diarrheal illness. Stool PCR/C. difficile are pending. He is hyperkalemic at 5.7, EKG is without territorial ischemia; T waves do have a peaked appearance compared to prior. Calcium gluconate given in the ER. Volume expanded with saline. Insulin/dextrose ordered. Will trend BMP following fluids insulin/dextrose. VBG ordered. Additional bolus of LR given to volume expand. While LR has potassium this is hypotonic plasma and is preferred over saline to prevent potentiation of underlying metabolic acidosis. Olmesartan/hydrochlorothiazide are held. Nephrology consulted. Addendum: Blood gas 7./44//. Metabolic acidosis with hyperkalemia with profound GI losses and renal failure. Started on isotonic bicarb 150 mEq/sterile water at 125 cc/h. BMP every 4 hours. Repeat lactate pending Addendum 1750pm: UOP improving. K decreasing. Cr improving. Cath if PVR >350. Stable at bedside, still appears volume contracted. +Lr bolus ordered, continue isotonic IVFM. No CP/CP/SoB. PG Care Time/CCT Total # of Minutes Spent Total Time Spent with Patient: Total time spent is greater than 50% in coordination of care (as documented) at patient's floor/unit and/or counseling patient: Coding [place] [address] INT INP/OBS CARE 3/75MIN Patient Type Established Medical Decision Making High Complexity Diagnoses Acute renal failure with oliguria N17.9; R34 Metabolic acidosis with normal anion gap and bicarbonate losses E87.20 Type 2 diabetes mellitus with obesity E11.69; E66.9 Acute hyperkalemia E87.5 Slurred speech R47.81 Diarrhea R19.7 Hypotension I95.9 COPD (chronic obstructive pulmonary disease) J44.9 Coronary artery disease involving [place] coronary artery of [place] heart without angina pectoris I25.10 Associated angina: without angina Coronary Disease-Associated Artery/Lesion type: [place] artery [place] vs. transplanted heart: [place] heart (9) CAD (coronary artery disease) Associated angina: without angina Coronary Disease-Associated Artery/Lesion type: [place] artery [place] vs. transplanted heart: [place] heart Qualified Code(s): I25.10 - Atherosclerotic heart disease of [place] coronary artery without angina pectoris
[2024-02-06] MEDS: DEXTROSE 50% 50 ML SYRINGE IV STA (14:12)
[2024-02-06] MEDS: INSULIN HUMAN REGULAR PER UNIT 10 UNITS in SYRINGE 9.9 ML IV STA (14:12)
[2024-02-06 14:25] LABS: Magnesium 2.3 mg/dl (1.7-2.4)
[2024-02-06 14:39] LABS: Base Excess VBG -11.1 mEq/L; HCO3 VBG 17 mmol/L; Oxygen Saturation VBG < 60.0 %; PCO2 VBG 44 mmHg (38-50); PO2 VBG 29 mmHg; pH VBG 7.19 (7.36-7.41)
[2024-02-06] MEDS ORDERED: CARBOHYDRATES FOR HYPOGLYCEMIA PO PRN (14:43)
[2024-02-06] MEDS ORDERED: GLUCOSE 40% GEL 15 GM TUBE PO PRN (14:43)
[2024-02-06] MEDS ORDERED: DEXTROSE 50% 50 ML SYRINGE IV PRN (14:43)
[2024-02-06] MEDS ORDERED: GLUCAGON FOR INJ 1 MG VIAL SQ PRN (14:43)
[2024-02-06] MEDS ORDERED: GLUCOSE 10 TAB/TUBE PO PRN (14:43)
--- NOTE | 2024-02-06 14:52 | CT Scan Report ---
CT OF THE HEAD WITHOUT CONTRAST CLINICAL HISTORY: slurred speech, left LE weakness COMPARISON STUDY: MRI of the brain August 16, 2023. Head CT and CTA of the head August 16, 2023. CT DOSE: 625.8 mGy.cm TECHNIQUE: Helical axial images of the head were obtained without IV contrast. Automated exposure con trol was utilized for the study. A dose lowering technique was utilized adhering to the principles o f ALARA. FINDINGS: No acute intracranial hemorrhage, midline shift or mass effect is present. The ventricular system is stable. White matter hypodensities are similar to prior exam and favor small vessel disease . Small hypodensities within the posterior limb of the right internal capsule and right thalamus are unchanged. The basal cisterns are patent. No extra-axial collections are present. There are no findin gs to suggest acute dural sinus thrombosis or acute territorial infarct. No significant calvarial abn ormalities are present. Visualized portions of the sinuses and mastoid air cells are clear. IMPRESSION: No acute intracranial findings. No change in appearance of the brain. ACT 112: Negative or not required by law. Electronically signed by: Tommy Greer M.D. 02/06/2024 2:50 PM
[2024-02-06] MEDS: SODIUM BICARBONATE 8.4% 150 MEQ in WATER, STERILE 1,000 ML IV SCH (15:20)
[2024-02-06] MEDS: LACTATED RINGER'S 500 ML IV ONE ×2 (15:21→17:59)
[2024-02-06] MEDS ORDERED: ALBUTEROL 0.5% NEB SOLN 2.5 MG/0.5 ML VIAL NEB PRN (15:44)
[2024-02-06 16:06] LABS: Base Excess VBG -9.3 mEq/L; HCO3 VBG 19 mmol/L; Oxygen Saturation VBG < 60.0 %; PCO2 VBG 48 mmHg (38-50); PO2 VBG < 20 mmHg
[2024-02-06 16:31] LABS: BUN Creatinine Ratio 22.7 (10-20); Calcium 8.9 mg/dl (8.6-10.3); Creatinine Clr Calc Pharmacy 15.6 ml/min; Est GFR (African American) 12.9 ml/min; Est GFR (Non-African American) 11.1 ml/min; Magnesium 2.2 mg/dl (1.7-2.4); Phosphorus 3.6 mg/dl (2.5-4.9); Potassium 5.3 mmol/L (3.5-5.1)
[2024-02-06] MEDS ORDERED: Nursing to Pharmacy Communication SCH (16:45)
[2024-02-06 17:09] LABS: Appearance Urine Clear (Clear); Bilirubin Urine Negative (Negative); Blood Urine Negative (Negative); Color Urine Yellow; Glucose Urine UA Negative (Negative); Ketones Urine Negative (Negative); Leukocyte Esterase Urine Negative (Negative); Nitrite Urine Negative (Negative); Protein Urine Negative (Negative); Specific Gravity Urine 1.011 (1.000-1.030); Urobilinogen Urine Negative (Negative)
--- NOTE | 2024-02-06 17:19 | Ultrasound Report ---
RENAL ULTRASOUND CLINICAL HISTORY: Acute renal failure. COMPARISON STUDY: None. TECHNIQUE: Sonography of the kidneys and the urinary bladder was performed. FINDINGS: The right kidney measures 13.1 cm in maximal dimension and the left measures 13.2 cm. There is no hydronephrosis. Mild bilateral renal cortical thinning is present. There is a 1.1 cm left caleb l cyst. Both ureteral jets were identified. IMPRESSION: 1. No hydronephrosis. 2. Mild bilateral renal cortical thinning. ACT 112: Negative or not required by law. Electronically signed by: Tommy Greer M.D. 02/06/2024 5:18 PM
[2024-02-06] MEDS: INSULIN ASPART PER UNIT CHARGE SC SCH (17:49)
[2024-02-06] MEDS: carvediloL 25 MG TAB PO SCH (17:56)
[2024-02-06 19:05] LABS: Base Excess VBG -7.6 mEq/L; HCO3 VBG 20 mmol/L; Oxygen Saturation VBG < 60.0 %; PCO2 VBG 46 mmHg (38-50); PO2 VBG 21 mmHg; pH VBG 7.24 (7.36-7.41)
[2024-02-06 19:57] LABS: BUN Creatinine Ratio 23.1 (10-20); Calcium 8.9 mg/dl (8.6-10.3); Creatinine Clr Calc Pharmacy 16.3 ml/min; Est GFR (African American) 13.6 ml/min; Est GFR (Non-African American) 11.7 ml/min; Magnesium 2.1 mg/dl (1.7-2.4); Potassium 6.2 mmol/L (3.5-5.1)
[2024-02-06] MEDS: HEPARIN SOD 5,000 UNIT/0.5 ML VIAL SQ SCH (20:43)
[2024-02-06] MEDS: SODIUM ZIRCONIUM CYCLOSILICATE 10 GM PACKET PO STA (20:43)
[2024-02-06 22:52] LABS: Base Excess VBG -6.2 mEq/L; HCO3 VBG 20 mmol/L; Oxygen Saturation VBG 77.4 %; PCO2 VBG 39 mmHg (38-50); PO2 VBG 45 mmHg; pH VBG 7.31 (7.36-7.41)
[2024-02-06 23:14] LABS: BUN Creatinine Ratio 25.5 (10-20); Creatinine Clr Calc Pharmacy 18.5 ml/min; Est GFR (African American) 15.7 ml/min; Est GFR (Non-African American) 13.6 ml/min; Potassium 4.9 mmol/L (3.5-5.1)
[2024-02-07 03:34] LABS: Base Excess VBG -4.4 mEq/L; HCO3 VBG 21 mmol/L; Oxygen Saturation VBG 79.1 %; PCO2 VBG 39 mmHg (38-50); PO2 VBG 43 mmHg; pH VBG 7.34 (7.36-7.41)
[2024-02-07 03:59] LABS: BUN Creatinine Ratio 27.3 (10-20); Calcium 8.6 mg/dl (8.6-10.3); Creatinine Clr Calc Pharmacy 21.6 ml/min; Est GFR (African American) 18.9 ml/min; Est GFR (Non-African American) 16.3 ml/min; Magnesium 1.9 mg/dl (1.7-2.4); Potassium 4.6 mmol/L (3.5-5.1)
[2024-02-07 04:11] LABS: Adenovirus F 40/41 PCR Not Detected (NotDetected); Astrovirus PCR Not Detected (NotDetected); Campylobacter PCR Not Detected (NotDetected); Cryptosporidium PCR Not Detected (NotDetected); Cyclospora cayetanensis PCR Not Detected (NotDetected); Entamoeba histolytica PCR Not Detected (NotDetected); Enteroaggregative E.coli(EAEC) Not Detected (NotDetected); Enteropathogenic E.coli (EPEC) Not Detected (NotDetected); Enterotoxigenic E.coli (ETEC) Not Detected (NotDetected); Giardia lamblia PCR Not Detected (NotDetected); Norovirus GI/GII PCR Not Detected (NotDetected); Plesiomonas shigelloides PCR Not Detected (NotDetected); Rotavirus A PCR Not Detected (NotDetected); Salmonella PCR Not Detected (NotDetected); Sapovirus PCR Not Detected (NotDetected); Shiga-like Toxin E.coli (STEC) Not Detected (NotDetected); Shigella/Enteroinvasive E.coli Not Detected (NotDetected); Vibrio cholerae PCR Not Detected (NotDetected); Vibrio species PCR Not Detected (NotDetected); Yersinia enterocolitica PCR Not Detected (NotDetected)
[2024-02-07 04:14] LABS: Basophils # (auto) 0.02 K/uL (0.00-0.20); Basophils % (auto) 0.4 %; Eosinophils % (auto) 1.9 %; Hematocrit (blood only) 41.5 % (42.0-52.0); Hemoglobin 14.2 g/dl (14.0-18.0); Immature Granulocytes # (auto) 0.02 K/uL (0.01-0.20); Immature Granulocytes % (auto) 0.4 %; Lymphocytes # (auto) 0.77 K/uL (1.20-3.40); Lymphocytes % (auto) 14.3 %; Mean Corpuscular Hemoglobin 30.3 pg (25.0-34.0); Mean Corpuscular Hgb Conc 34.2 g/dL (32.0-36.0); Mean Corpuscular Volume 88.7 fL (80.0-100.0); Mean Platelet Volume 9.3 fL (9.4-12.4); Monocytes # (auto) 0.76 K/uL (0.11-0.59); Monocytes % (auto) 14.2 %; Neutrophils % (auto) 68.8 %; Platelet Count 134 K/uL (130-400); RDW Standard Deviation 49.1 fL (36.4-46.3); Red Blood Count 4.68 M/uL (4.70-6.10); White Blood Count 5.37 K/ul (4.8-10.8)
[2024-02-07 04:52] LABS: Cdiff Toxin B Gene (2yr or >) Positive Cdiff Gene (Neg)
[2024-02-07 04:58] LABS: Cdiff Antigen Positive; Cdiff Toxin A+B Negative Cdiff Toxin (Negative)
[2024-02-07 07:32] LABS: Estimated Average Glucose 140 mg/dl; Hemoglobin A1C 6.5 % (4.5-5.6)
[2024-02-07 07:47] LABS: Base Excess VBG 2.7 mEq/L; HCO3 VBG 29 mmol/L; Oxygen Saturation VBG < 60.0 %; PCO2 VBG 52 mmHg (38-50); PO2 VBG 20 mmHg; pH VBG 7.36 (7.36-7.41)
[2024-02-07] MEDS: ATORVASTATIN 40 MG TAB PO SCH (08:06)
[2024-02-07] MEDS: PANTOprazole 40 MG TAB PO SCH (08:06)
[2024-02-07] MEDS: CLOPIDOGREL BISULFATE 75 MG TAB PO SCH (08:07)
[2024-02-07 08:08] LABS: BUN Creatinine Ratio 28.6 (10-20); Calcium 8.9 mg/dl (8.6-10.3); Creatinine Clr Calc Pharmacy 23.8 ml/min; Est GFR (African American) 21.4 ml/min; Est GFR (Non-African American) 18.5 ml/min; Potassium 4.7 mmol/L (3.5-5.1)
--- NOTE | 2024-02-07 08:10 | Electrocardiogram Report ---
Test Reason : Blood Pressure : / mmHG Vent. Rate : 085 BPM Atrial Rate : 085 BPM P-R Int : 194 ms QRS Dur : 090 ms QT Int : 356 ms P-R-T Axes : 049 013 024 degrees QTc Int : 423 ms Normal sinus rhythm Low voltage QRS Old Inferior infarct (cited on or before 16-AUG-2023) Possible Old Anterior infarct (cited on or before 16-AUG-2023) Abnormal ECG When compared with ECG of 16-AUG-2023 14:22, No significant change was found Confirmed by Des Bonilla ([id number]) on 02/07/2024 8:10:22 AM Referred By: REFERRED SELF Confirmed By:Des Bonilla
--- NOTE | 2024-02-07 09:00 | Nephrology Consultation ---
Date of Consultation February 07, 2024 Assessment & Plan (1) JINNY (acute kidney injury): Non-oliguric. Creatinine improving (5.3-->3.18 mg/dL). Electrolytes normal. Volume status acceptable. There is no current indication for dialysis. JINNY attributed to dehydration. UA bland. Renal US without evidence of obstruction. IVF with HCO3 stopped this AM. Medications are appropriately dosed for kidney function. Continue to hold metformin, olmesartan, and HCTZ. I would suggest limiting gabapentin to 300 or 600 mg daily pending improved kidney function. Baseline creatinine normal. Low potassium diet. Repeat metabolic profile tomorrow AM. (2) Dehydration: Improved. IVF changed to Plasma-Lyte @ 80 ml/hr this AM to encourage slightly positive fluid balance. Document strict I/O's. (3) Metabolic acidosis with normal anion gap and bicarbonate losses: Secondary to diarrhea and JINNY. Improved with therapy. BP acceptable. (4) Acute hyperkalemia: Improved. s/p Lokelma. NAGMA improved. HCO3 normalized. Creatinine improving. Urine output acceptable. Low potassium diet. History of Present Illness Reason for Consultation: JINNY, hyperkalemia Requesting Physician: Leslie Barcenas MD Attending Physician: Leslie Barcenas MD History of Present Illness Mr. Mike Young is a 73 year old male with coronary artery disease (BMS LAD '07; HELENE RCA '16), ischemic cardiomyopathy (LVEF 50-55%), diabetes mellitus II, hypertension, dyslipidemia, right vertebral artery aneurysm, COPD, and cryptogenic CVA who presented to the [facility] ED on 02/06/24 with ~5-6 days of diarrhea. Family was also concerned that Mr. Young was slurring his speech and LLE weakness. Mr. Young was hypotensive on presentation. He was volume depleted with JINNY. Laboratory studies also notable for NAGMA and hyperkalemia. Serum potassium was 5.7 mmol/L, HCO3 19 mEq/L, and creat 5.32 mg/dL. EKG demonstrating peaked T waves but otherwise normal. Baseline creatinine is ~1.2 mg/dL. UA was bland with acellular microscopy. Renal US demonstrating the kidneys to be unobstructed. Urine output improved with IVF. HCTZ, olmesartan, metformin, and semaglutide have been held. Creatinine improving. Serum potassium and HCO3 have normalized. Mr. Young recently completed a course of prednisone for acute gout flare. PO intake has been poor. This is improving. He was seen and evaluated with his at the bedside this AM. I also discussed the plan of care with Dr. Barcenas. Diarrhea seems to have improved. Small bowel movement reported this AM. Mr. Young denies abdominal pain. He was off Ozempic for several weeks and restarted 1 mg weekly 2 weeks ago. Denies GI symptoms with the medication in the past. Allergies Allergy/AdvReac Type Severity Reaction Status Date / Time No Known Drug Allergies Allergy N/A Verified 02/06/24 18:01 Home Medications Medication Instructions Recorded Confirmed Type nitroglycerin 0.4 mg sublingual 0.4 mg sublingual Q5M PRN Chest 09/03/21 02/06/24 History tablet (Nitrostat) Pain cyanocobalamin (vitamin B-12) 1,000 mcg PO QAM 08/16/23 02/06/24 History 1,000 mcg tablet (Vitamin B-12) metformin 500 mg tablet 2,000 mg PO QPM 08/16/23 02/06/24 History gabapentin 300 mg capsule 900 mg (3 x 300 mg) PO UD #270 caps 08/23/23 02/06/24 Rx atorvastatin 40 mg tablet 40 mg PO DAILY #90 tabs 10/14/23 02/06/24 Rx carvedilol 25 mg tablet 25 mg PO BID #180 tabs 10/14/23 02/06/24 Rx clopidogrel 75 mg tablet 75 mg PO QAM #90 tabs 10/14/23 02/06/24 Rx hydrochlorothiazide 25 mg tablet 25 mg PO DAILY PRN take for SBP 10/14/23 02/06/24 Rx >140 #90 tabs olmesartan 40 mg tablet 40 mg PO DAILY #90 tabs 10/14/23 02/06/24 Rx pantoprazole 20 mg tablet,delayed 20 mg PO DAILY #90 tabs 10/14/23 02/06/24 Rx release lidocaine 3 % topical cream 1 applic topical BID PRN pain 01/27/24 02/06/24 Rx #28.35 grams semaglutide 1 mg/dose (4 mg/3 mL) 1 mg subcut UD 02/06/24 02/06/24 History subcutaneous pen injector Patient History Surgical History S/P cardiac catheterization Family History Mother Heart disease Myocardial infarction Hypertension Father Alcoholism Sister , Age: 52 COPD (chronic obstructive pulmonary disease) Brother Coronary heart disease Other No family history of adverse response to anesthesia No family history of bleeding disorder Denies family history of Ovarian cancer Prostate cancer Breast cancer Colorectal cancer Social History Smoking Status: Former smoker Tobacco Type: Cigarettes packs per day: 1; Smoking End Date: 10 years ago; Second Hand Exposure: No; Do You Dip or Chew Tobacco: No; Tobacco Cessation Education Requested by Patient: No Hx Alcohol Use: No Hx Substance Use: No Preferred Language: Danish Communication Ability: Effective Buying Intern Required: No Beliefs That Will Affect Care: None marital status: Current Living Situation: Spouse current occupational status: retired 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, [employer] Other Information That Helps Us Care for You: No Feels Safe at Home: Yes Safety Concerns: Feels Safe At This Time Childhood Exposure to Second-Hand Smoke: Yes caffeine: Yes (Coffee, Carbonated beverage, 1 daily) Dental Care, Regularly: Yes Physical Activity Frequency: 3-4 Times per Week Physical Activity Frequency Comment: Walking Seatbelt Use: always Sunscreen Use: No Assistive Devices: None Review of Systems Review of Systems: All systems reviewed & are unremarkable except as noted in HPI & below Physical Exam Constitutional: well developed; no acute distress Eyes: no scleral abnormality and no corneal abnormality ENMT: Mouth: no oral mucosal abnormality and oral mucous membranes not dry Neck: normal visual inspection and trachea midline Respiratory: normal respiratory effort Auscultation: lungs clear to auscultation bilaterally Cardiovascular: Rate/Rhythm: regular rate Extremities: no edema Gastrointestinal (Abdomen): Percussion/Palpation: abdomen soft; abdomen nontender and no guarding Musculoskeletal: Extremities: no cyanosis and no clubbing Skin: normal turgor; no jaundice Neurologic: Motor/Sensory: no tremor and no asterixis Psychiatric: Orientation: alert and oriented x 3 Results & Data Vital Signs (Past 12 Hours) Vital Signs Temp Pulse Pulse Resp BP Pulse Ox O2 Del Method 02/07/24 07:51 88 02/07/24 07:24 36.4 C L 82 16 152/99 H 95 Room Air 02/07/24 02:52 36.3 C L 85 104/70 96 Room Air 02/06/24 23:30 77 02/06/24 23:23 36.3 C L 85 18 144/86 H 93 Room Air 02/06/24 23:15 Room Air Laboratory Results Laboratory Results - last 24 hr 02/06/24 02/06/24 02/06/24 12:42 14:28 15:54 WBC 7.47 RBC 5.69 Hgb 17.3 Hct 52.0 MCV 91.4 MCH 30.4 MCHC 33.3 RDW Std Deviation 50.4 H RDW Coeff of [place] 15.2 H Plt Count 200 MPV 9.4 Immature Gran % (Auto) 0.4 Neut % (Auto) 72.9 Lymph % (Auto) 12.0 [place] % (Auto) 12.2 Eos % (Auto) 2.0 Baso % (Auto) 0.5 Neut # (Auto) 5.44 Lymph # (Auto) 0.90 L [place] # (Auto) 0.91 H Eos # (Auto) 0.15 Baso # (Auto) 0.04 Immature Gran # (Auto) 0.03 VBG pH 7.19 L 7.20 L VBG pCO2 44 48 VBG pO2 29 < 20 VBG HCO3 17 19 VBG O2 Saturation < 60.0 < 60.0 VBG Base Excess -11.1 -9.3 Sodium 132 L 133 L Potassium 5.7 H 5.3 H Chloride 102 107 Carbon Dioxide 19 L 19 L Anion Gap 11 7 BUN 117 H 110 H Creatinine 5.32 H* 4.85 H* D Est Cr Clr Drug Dosing 13.7 15.6 Est GFR ( Amer) 11.5 12.9 Est GFR (Non-Af Amer) 9.9 11.1 BUN/Creatinine Ratio 22.0 H 22.7 H Glucose 124 H 103 H POC Glucose Estimat Average Glucose Hemoglobin A1c Lactate 2.1 H* 1.3 Calcium 9.5 8.9 Phosphorus 5.0 H 3.6 D Magnesium 2.3 2.2 Total Bilirubin 0.8 AST 6 L ALT 8 Alkaline Phosphatase 95 Total Protein 7.8 Albumin 4.5 Globulin 3.3 Albumin/Globulin Ratio 1.4 Lipase 115 H Urine Color Urine Appearance Urine pH Ur Specific [place] Urine Protein Urine Glucose (UA) Urine Ketones Urine Blood Urine Nitrite Urine Bilirubin Urine Urobilinogen Ur Leukocyte Esterase Stl C. cayetanensis PCR Stool Rotavirus A PCR Stl Adenov PCR Stool Astrovirus (PCR) Stool Campylobacter PCR Stl C. diff Tox B Gene Stl C.difficile Tox A&B Stool Cryptosporidium PCR Stl E.coli Shiga Tox PCR Stl Enterotoxigenic E PCR Stool EPEC (PCR) Stool EAEC (PCR) Stl E. histolytica PCR Stool Giardia Lamblia PCR Stool Salmonella PCR Stool Sapovirus (PCR) Stl P. shigelloides PCR Stl Shigella/EIEC PCR St Y.enterocolitica PCR Stool Vibrio (PCR) Stl Vibrio cholerae PCR Stl Norovirus GI/GII PCR 02/06/24 02/06/24 02/06/24 16:10 16:30 18:57 WBC RBC Hgb Hct MCV MCH MCHC RDW Std Deviation RDW Coeff of [place] Plt Count MPV Immature Gran % (Auto) Neut % (Auto) Lymph % (Auto) [place] % (Auto) Eos % (Auto) Baso % (Auto) Neut # (Auto) Lymph # (Auto) [place] # (Auto) Eos # (Auto) Baso # (Auto) Immature Gran # (Auto) VBG pH 7.24 L VBG pCO2 46 VBG pO2 21 VBG HCO3 20 VBG O2 Saturation < 60.0 VBG Base Excess -7.6 Sodium 133 L Potassium 6.2 H* Chloride 107 Carbon Dioxide 19 L Anion Gap 7 BUN 107 H Creatinine 4.64 H* Est Cr Clr Drug Dosing 16.3 Est GFR ( Amer) 13.6 Est GFR (Non-Af Amer) 11.7 BUN/Creatinine Ratio 23.1 H Glucose 115 H POC Glucose 100 H Estimat Average Glucose Hemoglobin A1c Lactate Calcium 8.9 Phosphorus Magnesium 2.1 Total Bilirubin AST ALT Alkaline Phosphatase Total Protein Albumin Globulin Albumin/Globulin Ratio Lipase Urine Color Yellow Urine Appearance Clear Urine pH 5.0 Ur Specific [place] 1.011 Urine Protein Negative Urine Glucose (UA) Negative Urine Ketones Negative Urine Blood Negative Urine Nitrite Negative Urine Bilirubin Negative Urine Urobilinogen Negative Ur Leukocyte Esterase Negative Stl C. cayetanensis PCR Stool Rotavirus A PCR Stl Adenov F PCR Stool Astrovirus (PCR) Stool Campylobacter PCR Stl C. diff Tox B Gene Stl C.difficile Tox A&B Stool Cryptosporidium PCR Stl E.coli Shiga Tox PCR Stl Enterotoxigenic E PCR Stool EPEC (PCR) Stool EAEC (PCR) Stl E. histolytica PCR Stool Giardia Lamblia PCR Stool Salmonella PCR Stool Sapovirus (PCR) Stl P. shigelloides PCR Stl Shigella/EIEC PCR St Y.enterocolitica PCR Stool Vibrio (PCR) Stl Vibrio cholerae PCR Stl Norovirus GI/GII PCR 02/06/24 02/06/24 02/06/24 20:14 20:33 22:40 WBC RBC Hgb Hct MCV MCH MCHC RDW Std Deviation RDW Coeff of [place] Plt Count MPV Immature Gran % (Auto) Neut % (Auto) Lymph % (Auto) [place] % (Auto) Eos % (Auto) Baso % (Auto) Neut # (Auto) Lymph # (Auto) [place] # (Auto) Eos # (Auto) Baso # (Auto) Immature Gran # (Auto) VBG pH 7.31 L VBG pCO2 39 VBG pO2 45 VBG HCO3 20 VBG O2 Saturation 77.4 VBG Base Excess -6.2 Sodium 134 L Potassium 5.3 H 4.9 Chloride 107 Carbon Dioxide 19 L Anion Gap 8 BUN 105 H Creatinine 4.11 H D Est Cr Clr Drug Dosing 18.5 Est GFR ( Amer) 15.7 Est GFR (Non-Af Amer) 13.6 BUN/Creatinine Ratio 25.5 H Glucose 91 POC Glucose 114 H Estimat Average Glucose Hemoglobin A1c Lactate Calcium 9.0 Phosphorus Magnesium 2.0 Total Bilirubin AST ALT Alkaline Phosphatase Total Protein Albumin Globulin Albumin/Globulin Ratio Lipase Urine Color Urine Appearance Urine pH Ur Specific [place] Urine Protein Urine Glucose (UA) Urine Ketones Urine Blood Urine Nitrite Urine Bilirubin Urine Urobilinogen Ur Leukocyte Esterase Stl C. cayetanensis PCR Stool Rotavirus A PCR Stl Adenov F 40 PCR Stool Astrovirus (PCR) Stool Campylobacter PCR Stl C. diff Tox B Gene Stl C.difficile Tox A&B Stool Cryptosporidium PCR Stl E.coli Shiga Tox PCR Stl Enterotoxigenic E PCR Stool EPEC (PCR) Stool EAEC (PCR) Stl E. histolytica PCR Stool Giardia Lamblia PCR Stool Salmonella PCR Stool Sapovirus (PCR) Stl P. shigelloides PCR Stl Shigella/EIEC PCR St Y.enterocolitica PCR Stool Vibrio (PCR) Stl Vibrio cholerae PCR Stl Norovirus GI/GII PCR 02/07/24 02/07/24 02/07/24 02:15 03:22 07:14 WBC 5.37 RBC 4.68 L Hgb 14.2 D Hct 41.5 L MCV 88.7 MCH 30.3 MCHC 34.2 RDW Std Deviation 49.1 H RDW Coeff of [place] 15.0 H Plt Count 134 MPV 9.3 L Immature Gran % (Auto) 0.4 Neut % (Auto) 68.8 Lymph % (Auto) 14.3 [place] % (Auto) 14.2 Eos % (Auto) 1.9 Baso % (Auto) 0.4 Neut # (Auto) 3.70 Lymph # (Auto) 0.77 L [place] # (Auto) 0.76 H Eos # (Auto) 0.10 Baso # (Auto) 0.02 Immature Gran # (Auto) 0.02 VBG pH 7.34 L VBG pCO2 39 VBG pO2 43 VBG HCO3 21 VBG O2 Saturation 79.1 VBG Base Excess -4.4 Sodium 137 Potassium 4.6 Chloride 107 Carbon Dioxide 21 Anion Gap 9 BUN 96 H Creatinine 3.52 H D Est Cr Clr Drug Dosing 21.6 Est GFR ( Amer) 18.9 Est GFR (Non-Af Amer) 16.3 BUN/Creatinine Ratio 27.3 H Glucose 93 POC Glucose 82 Estimat Average Glucose 140 Hemoglobin A1c 6.5 H Lactate Calcium 8.6 Phosphorus Magnesium 1.9 Total Bilirubin AST ALT Alkaline Phosphatase Total Protein Albumin Globulin Albumin/Globulin Ratio Lipase Urine Color Urine Appearance Urine pH Ur Specific [place] Urine Protein Urine Glucose (UA) Urine Ketones Urine Blood Urine Nitrite Urine Bilirubin Urine Urobilinogen Ur Leukocyte Esterase Stl C. cayetanensis PCR Not Detected Stool Rotavirus A PCR Not Detected Stl Adenov F 40/ PCR Not Detected Stool Astrovirus (PCR) Not Detected Stool Campylobacter PCR Not Detected Stl C. diff Tox B Gene Positive Cdiff Gene H Stl C.difficile Tox A&B Negative Cdiff Toxin Stool Cryptosporidium PCR Not Detected Stl E.coli Shiga Tox PCR Not Detected Stl Enterotoxigenic E PCR Not Detected Stool EPEC (PCR) Not Detected Stool EAEC (PCR) Not Detected Stl E. histolytica PCR Not Detected Stool Giardia Lamblia PCR Not Detected Stool Salmonella PCR Not Detected Stool Sapovirus (PCR) Not Detected Stl P. shigelloides PCR Not Detected Stl Shigella/EIEC PCR Not Detected St Y.enterocolitica PCR Not Detected Stool Vibrio (PCR) Not Detected Stl Vibrio cholerae PCR Not Detected Stl Norovirus GI/GII PCR Not Detected 02/07/24 07:24 WBC RBC Hgb Hct MCV MCH MCHC RDW Std Deviation RDW Coeff of [place] Plt Count MPV Immature Gran % (Auto) Neut % (Auto) Lymph % (Auto) [place] % (Auto) Eos % (Auto) Baso % (Auto) Neut # (Auto) Lymph # (Auto) [place] # (Auto) Eos # (Auto) Baso # (Auto) Immature Gran # (Auto) VBG pH 7.36 VBG pCO2 52 H VBG pO2 20 VBG HCO3 29 VBG O2 Saturation < 60.0 VBG Base Excess 2.7 Sodium 140 Potassium 4.7 Chloride 107 Carbon Dioxide 27 Anion Gap 6 BUN 91 H Creatinine 3.18 H D Est Cr Clr Drug Dosing 23.8 Est GFR ( Amer) 21.4 Est GFR (Non-Af Amer) 18.5 BUN/Creatinine Ratio 28.6 H Glucose 86 POC Glucose Estimat Average Glucose Hemoglobin A1c Lactate Calcium 8.9 Phosphorus Magnesium 2.0 Total Bilirubin AST ALT Alkaline Phosphatase Total Protein Albumin Globulin Albumin/Globulin Ratio Lipase Urine Color Urine Appearance Urine pH Ur Specific [place] Urine Protein Urine Glucose (UA) Urine Ketones Urine Blood Urine Nitrite Urine Bilirubin Urine Urobilinogen Ur Leukocyte Esterase Stl C. cayetanensis PCR Stool Rotavirus A PCR Stl Adenov F 40/41 PCR Stool Astrovirus (PCR) Stool Campylobacter PCR Stl C. diff Tox B Gene Stl C.difficile Tox A&B Stool Cryptosporidium PCR Stl E.coli Shiga Tox PCR Stl Enterotoxigenic E PCR Stool EPEC (PCR) Stool EAEC (PCR) Stl E. histolytica PCR Stool Giardia Lamblia PCR Stool Salmonella PCR Stool Sapovirus (PCR) Stl P. shigelloides PCR Stl Shigella/EIEC PCR St Y.enterocolitica PCR Stool Vibrio (PCR) Stl Vibrio cholerae PCR Stl Norovirus GI/GII PCR Diagnostic Findings RENAL ULTRASOUND COMPARISON STUDY: None. TECHNIQUE: Sonography of the kidneys and the urinary bladder was performed. FINDINGS: The right kidney measures 13.1 cm in maximal dimension and the left measures 13.2 cm. There is no hydronephrosis. Mild bilateral renal cortical thinning is present. There is a 1.1 cm left renal cyst. Both ureteral jets were identified. IMPRESSION: 1. No hydronephrosis. 2. Mild bilateral renal cortical thinning. ECG Rate (beats per minute): 85 Rhythm: sinus rhythm PG Care Time/CCT Total # of Minutes Spent Total Time Spent with Patient: Total time spent is greater than 50% in coordination of care (as documented) at patient's floor/unit and/or counseling patient: Coding Level of Care Code 33273 IN/OBS CONSULT LVL 4,60M Diagnoses JINNY (acute kidney injury) N17.9 Dehydration E86.0 Metabolic acidosis with normal anion gap and bicarbonate losses E87.20 Acute hyperkalemia E87.5
[2024-02-07] MEDS: PLASMA-LYTE A 1,000 ML IV SCH (10:11)
[2024-02-07 11:44] LABS: Base Excess VBG 1.4 mEq/L; HCO3 VBG 29 mmol/L; Oxygen Saturation VBG < 60.0 %; PCO2 VBG 54 mmHg (38-50); PO2 VBG 24 mmHg; pH VBG 7.33 (7.36-7.41)
[2024-02-07 12:05] LABS: BUN Creatinine Ratio 29.5 (10-20); Calcium 9.2 mg/dl (8.6-10.3); Creatinine Clr Calc Pharmacy 26.2 ml/min; Est GFR (African American) 24.2 ml/min; Est GFR (Non-African American) 20.8 ml/min; Magnesium 2.1 mg/dl (1.7-2.4); Potassium 4.6 mmol/L (3.5-5.1)
[2024-02-07 15:05] LABS: Base Excess VBG 0.8 mEq/L; HCO3 VBG 27 mmol/L; Oxygen Saturation VBG < 60.0 %; PCO2 VBG 49 mmHg (38-50); PO2 VBG 35 mmHg; pH VBG 7.35 (7.36-7.41)
[2024-02-07 15:30] LABS: BUN Creatinine Ratio 31.9 (10-20); Calcium 8.9 mg/dl (8.6-10.3); Creatinine Clr Calc Pharmacy 29.1 ml/min; Est GFR (African American) 27.3 ml/min; Est GFR (Non-African American) 23.6 ml/min; Potassium 4.7 mmol/L (3.5-5.1)
--- NOTE | 2024-02-07 16:03 | Hospitalist Progress Note ---
Date of Service February 07, 2024 Assessment & Plan (1) Acute renal failure with oliguria: Plan: Secondary to dehydration from combination of diarrhea and continuing diuretics Improving with hydration Creatinine improved from 5.3-3.18 Bicarb drip discontinued Patient is now on Plasma-Lyte at 80 mL/h Nephrology involved Hyperkalemia resolved (2) Metabolic acidosis with normal anion gap and bicarbonate losses: Plan: Resolved Bicarb drip switched to Plasma-Lyte (3) Type 2 diabetes mellitus with obesity: Plan: -Hold metformin, Semaglutide -Monitor BSG ACHS , goal is 110-160 -Start CF 50 and CR 15 ACHS for now -Will hold basal insulin for now to avoid hypoglycemia with his renal failure -Adjust regimen as needed (4) Acute hyperkalemia: Plan: -Potassium of 5.7 on arrival Resolved with improvement in renal function (5) Slurred speech: Plan: This was most likely metabolic encephalopathy from acute kidney injury Resolved Patient is no more slurring his speech (6) Diarrhea: Plan: -Has had 6-10 episodes of non-bloody diarrhea daily for the past 7-10 days Resolved Most likely viral in etiology (7) Hypotension: Plan: -Initially with systolics in the 80's on arrival -Currently stable -Likely a combination of dehydration, ongoing diuretic use -Continue maintenance fluids, holding antihypertensives for now (8) COPD (chronic obstructive pulmonary disease): Plan: -Stable on RA, no wheezing on exam -Not on home breathing treatments -Start incentive spirometry and prn albuterol for now (9) CAD (coronary artery disease): Plan: -Continue plavix and statin Admission and Anticipated Discharge Date Admission Date: February 06, 2024 Subjective Patient feels much better overall. He says that his diarrhea has resolved. He is tolerating meals. No nausea or vomiting. No shortness of breath. Review of Systems Review of Systems: All systems reviewed & are unremarkable except as noted in Subjective Physical Exam Physical Exam: General: Awake, conversant Heart: S1, S2/regular rate and rhythm, no murmur rubs or gallops Lungs: Clear to auscultation bilaterally. Normal effort Abdomen: Soft/nontender/nondistended. No hepatosplenomegaly Extremities: No clubbing/cyanosis. No edema Behavior: Appropriate, cooperative Results & Data Results & Data Vital Signs (Past 12 Hours) Vital Signs Temp Pulse Pulse Resp BP Pulse Ox O2 Del Method 02/07/24 15:10 36.4 C L 83 18 119/75 95 Room Air 02/07/24 11:22 36.6 C 86 18 117/75 95 Room Air 02/07/24 11:15 95 02/07/24 07:51 88 02/07/24 07:24 36.4 C L 82 16 152/99 H 95 Room Air Laboratory Results Abnormal lab results 02/06/24 02/06/24 02/06/24 Range/Units 15:54 16:10 18:57 RBC (4.70-6.10) M/uL Hct (42.0-52.0) % RDW Std Deviation (36.4-46.3) fL RDW Coeff of [place] (11.5-14.5) % MPV (9.4-12.4) fL Lymph # (Auto) (1.20-3.40) K/uL [place] # (Auto) (0.11-0.59) K/uL VBG pH 7.20 L 7.24 L (7.36-7.41) VBG pCO2 (38-50) mmHg Sodium 133 L 133 L (136-145) mmol/L Potassium 5.3 H 6.2 H* (3.5-5.1) mmol/L Carbon Dioxide 19 L 19 L (21-32) mmol/L BUN 110 H 107 H (6-23) mg/dl Creatinine 4.85 H* D 4.64 H* (0.6-1.4) mg/dl BUN/Creatinine Ratio 22.7 H 23.1 H (10-20) Glucose 103 H 115 H (70-99(Fasting)) mg/dl POC Glucose 100 H (70-99) mg/dl Hemoglobin A1c (4.5-5.6) % Stl C. diff Tox B Gene (Neg) 02/06/24 02/06/24 02/06/24 Range/Units 20:14 20:33 22:40 RBC (4.70-6.10) M/uL Hct (42.0-52.0) % RDW Std Deviation (36.4-46.3) fL RDW Coeff of [place] (11.5-14.5) % MPV (9.4-12.4) fL Lymph # (Auto) (1.20-3.40) K/uL [place] # (Auto) (0.11-0.59) K/uL VBG pH 7.31 L (7.36-7.41) VBG pCO2 (38-50) mmHg Sodium 134 L (136-145) mmol/L Potassium 5.3 H (3.5-5.1) mmol/L Carbon Dioxide 19 L (21-32) mmol/L BUN 105 H (6-23) mg/dl Creatinine 4.11 H D (0.6-1.4) mg/dl BUN/Creatinine Ratio 25.5 H (10-20) Glucose (70-99(Fasting)) mg/dl POC Glucose 114 H (70-99) mg/dl Hemoglobin A1c (4.5-5.6) % Stl C. diff Tox B Gene (Neg) 02/07/24 02/07/24 02/07/24 Range/Units 02:15 03:22 07:24 RBC 4.68 L (4.70-6.10) M/uL Hct 41.5 L (42.0-52.0) % RDW Std Deviation 49.1 H (36.4-46.3) fL RDW Coeff of [place] 15.0 H (11.5-14.5) % MPV 9.3 L (9.4-12.4) fL Lymph # (Auto) 0.77 L (1.20-3.40) K/uL [place] # (Auto) 0.76 H (0.11-0.59) K/uL VBG pH 7.34 L (7.36-7.41) VBG pCO2 52 H (38-50) mmHg Sodium (136-145) mmol/L Potassium (3.5-5.1) mmol/L Carbon Dioxide (21-32) mmol/L BUN 96 H 91 H (6-23) mg/dl Creatinine 3.52 H D 3.18 H D (0.6-1.4) mg/dl BUN/Creatinine Ratio 27.3 H 28.6 H (10-20) Glucose (70-99(Fasting)) mg/dl POC Glucose (70-99) mg/dl Hemoglobin A1c 6.5 H (4.5-5.6) % Stl C. diff Tox B Gene Positive Cdiff Gene H (Neg) 02/07/24 02/07/24 02/07/24 Range/Units 11:21 11:25 11:28 RBC (4.70-6.10) M/uL Hct (42.0-52.0) % RDW Std Deviation (36.4-46.3) fL RDW Coeff of [place] (11.5-14.5) % MPV (9.4-12.4) fL Lymph # (Auto) (1.20-3.40) K/uL [place] # (Auto) (0.11-0.59) K/uL VBG pH 7.33 L (7.36-7.41) VBG pCO2 54 H (38-50) mmHg Sodium (136-145) mmol/L Potassium (3.5-5.1) mmol/L Carbon Dioxide (21-32) mmol/L BUN 85 H (6-23) mg/dl Creatinine 2.88 H D (0.6-1.4) mg/dl BUN/Creatinine Ratio 29.5 H (10-20) Glucose (70-99(Fasting)) mg/dl POC Glucose 107 H (70-99) mg/dl Hemoglobin A1c (4.5-5.6) % Stl C. diff Tox B Gene (Neg) 02/07/24 Range/Units 14:55 RBC (4.70-6.10) M/uL Hct (42.0-52.0) % RDW Std Deviation (36.4-46.3) fL RDW Coeff of [place] (11.5-14.5) % MPV (9.4-12.4) fL Lymph # (Auto) (1.20-3.40) K/uL [place] # (Auto) (0.11-0.59) K/uL VBG pH 7.35 L (7.36-7.41) VBG pCO2 (38-50) mmHg Sodium (136-145) mmol/L Potassium (3.5-5.1) mmol/L Carbon Dioxide (21-32) mmol/L BUN 83 H (6-23) mg/dl Creatinine 2.60 H (0.6-1.4) mg/dl BUN/Creatinine Ratio 31.9 H (10-20) Glucose (70-99(Fasting)) mg/dl POC Glucose (70-99) mg/dl Hemoglobin A1c (4.5-5.6) % Stl C. diff Tox B Gene (Neg) Diagnostic Findings Renal Ultrasound 02/06/24 14:57 RENAL ULTRASOUND CLINICAL HISTORY: Acute renal failure. COMPARISON STUDY: None. TECHNIQUE: Sonography of the kidneys and the urinary bladder was performed. FINDINGS: The right kidney measures 13.1 cm in maximal dimension and the left measures 13.2 cm. There is no hydronephrosis. Mild bilateral renal cortical thinning is present. There is a 1.1 cm left renal cyst. Both ureteral jets were identified. IMPRESSION: 1. No hydronephrosis. 2. Mild bilateral renal cortical thinning. ACT 112: Negative or not required by law. Electronically signed by: Tommy Greer M.D. 02/06/2024 5:18 PM PG Care Time/CCT Total # of Minutes Spent Total Time Spent with Patient: Total time spent is greater than 50% in coordination of care (as documented) at patient's floor/unit and/or counseling patient: Coding Level of Care Code 23605 SUB INP/OBS CARE 2/35MIN Diagnoses Acute renal failure with oliguria N17.9; R34 Metabolic acidosis with normal anion gap and bicarbonate losses E87.20 Type 2 diabetes mellitus with obesity E11.69; E66.9 Acute hyperkalemia E87.5 Slurred speech R47.81 Diarrhea R19.7 Hypotension I95.9 COPD (chronic obstructive pulmonary disease) J44.9 Coronary artery disease involving [place] coronary artery of [place] heart without angina pectoris I25.10 Coronary Disease-Associated Artery/Lesion type: [place] artery [place] vs. transplanted heart: [place] heart Associated angina: without angina (9) CAD (coronary artery disease) Coronary Disease-Associated Artery/Lesion type: [place] artery [place] vs. transplanted heart: [place] heart Associated angina: without angina Qualified Code(s): I25.10 - Atherosclerotic heart disease of [place] coronary artery without angina pectoris
[2024-02-08 06:29] LABS: Basophils # (auto) 0.03 K/uL (0.00-0.20); Basophils % (auto) 0.6 %; Eosinophils # (auto) 0.11 K/uL (0.00-0.50); Eosinophils % (auto) 2.1 %; Hemoglobin 13.6 g/dl (14.0-18.0); Immature Granulocytes # (auto) 0.01 K/uL (0.01-0.20); Immature Granulocytes % (auto) 0.2 %; Lymphocytes # (auto) 1.04 K/uL (1.20-3.40); Lymphocytes % (auto) 19.6 %; Mean Corpuscular Hemoglobin 30.1 pg (25.0-34.0); Mean Corpuscular Volume 88.5 fL (80.0-100.0); Mean Platelet Volume 9.6 fL (9.4-12.4); Monocytes # (auto) 0.83 K/uL (0.11-0.59); Monocytes % (auto) 15.7 %; Neutrophils # (auto) 3.28 K/uL (1.40-6.50); Neutrophils % (auto) 61.8 %; Platelet Count 134 K/uL (130-400); Red Blood Count 4.52 M/uL (4.70-6.10)
[2024-02-08 06:47] LABS: Calcium 8.5 mg/dl (8.6-10.3); Creatinine Clr Calc Pharmacy 38.2 ml/min; Est GFR (African American) 38.2 ml/min; Potassium 4.5 mmol/L (3.5-5.1)
--- NOTE | 2024-02-08 10:43 | Nephrology Progress Note ---
Date of Service February 08, 2024 Assessment & Plan (1) JINNY (acute kidney injury): Plan: Non-oliguric. Creatinine continues to improve. Electrolytes normal. Volume status acceptable. IVF have been stopped. JINNY attributed to dehydration and suspected ATN. UA bland. Renal US without evidence of obstruction. Medications are appropriately dosed for kidney function. Continue to hold HCTZ today. Olmesartan can be restarted as needed. Some permissive hypertension can be tolerated. No need to restart RAASi now. Close follow up can be arranged in the nephrology clinic at discharge. If discharged today, please continue to hold olmesartan and HCTZ and arrange ou tpatient follow up with me next week in the [facility]. Baseline creatinine normal. Monitor metabolic profile daily while inpatient and recheck within 1 week of hospital discharge. (2) Metabolic acidosis with normal anion gap and bicarbonate losses: Plan: Resolved. (3) Acute hyperkalemia: Plan: Resolved. Admission and Anticipated Discharge Date Admission Date: February 06, 2024 Subjective No acute events overnight. Mike feels well this AM. He would like to go home today. No diarrhea or GI symptoms. No fevers or chills. Denies fluid retention or edema. Review of Systems Review of Systems: All systems reviewed & are unremarkable except as noted in HPI & below Physical Exam Constitutional: well developed; no acute distress Eyes: no scleral abnormality and no corneal abnormality ENMT: Mouth: no oral mucosal abnormality and oral mucous membranes not dry Neck: normal visual inspection and trachea midline Respiratory: normal respiratory effort Auscultation: lungs clear to auscult ation bilaterally Cardiovascular: Rate/Rhythm: regular rate Heart Sounds: normal S1 and normal S2 Extremities: no edema Gastrointestinal (Abdomen): Percussion/Palpation: abdomen soft; abdomen nontender and no guarding Musculoskeletal: Extremities: no cyanosis and no clubbing Skin: normal turgor; no jaundice Neurologic: Motor/Sensory: no tremor and no asterixis Psychiatric: Orientation: alert and oriented x 3 Results & Data Vital Signs (Past 12 Hours) Vital Signs Temp Pulse Pulse Resp BP Pulse Ox O2 Del Method 02/08/24 07:59 36.7 C 82 18 159/83 H 96 Room Air 02/08/24 06:33 78 02/08/24 03:18 36.5 C 81 20 149/76 H 95 Room Air 02/08/24 01:00 85 02/07/24 23:23 37.0 C 84 18 124/75 94 Room Air Laboratory Results Laboratory Results - last 24 hr 02/07/24 02/07/24 02/07/24 11:21 11:25 11:28 WBC RBC Hgb Hct MCV MCH MCHC RDW Std Deviation RDW Coeff of [place] Plt Count MPV Immature Gran % (Auto) Neut % (Auto) Lymph % (Auto) [place] % (Auto) Eos % (Auto) Baso % (Auto) Neut # (Auto) Lymph # (Auto) [place] # (Auto) Eos # (Auto) Baso # (Auto) Immature Gran # (Auto) VBG pH 7.33 L VBG pCO2 54 H VBG pO2 24 VBG HCO3 29 VBG O2 Saturation < 60.0 VBG Base Excess 1.4 Sodium 139 Potassium 4.6 Chloride 106 Carbon Dioxide 29 Anion Gap 4 BUN 85 H Creatinine 2.88 H D Est Cr Clr Drug Dosing 26.2 Est GFR ( Amer) 24.2 Est GFR (Non-Af Amer) 20.8 BUN/Creatinine Ratio 29.5 H Glucose 92 POC Glucose 107 H Calcium 9.2 Magnesium 2.1 02/07/24 02/07/24 02/07/24 14:55 16:19 20:38 WBC RBC Hgb Hct MCV MCH MCHC RDW Std Deviation RDW Coeff of [place] Plt Count MPV Immature Gran % (Auto) Neut % (Auto) Lymph % (Auto) [place] % (Auto) Eos % (Auto) Baso % (Auto) Neut # (Auto) Lymph # (Auto) [place] # (Auto) Eos # (Auto) Baso # (Auto) Immature Gran # (Auto) VBG pH 7.35 L VBG pCO2 49 VBG pO2 35 VBG HCO3 27 VBG O2 Saturation < 60.0 VBG Base Excess 0.8 Sodium 139 Potassium 4.7 Chloride 106 Carbon Dioxide 27 Anion Gap 6 BUN 83 H Creatinine 2.60 H Est Cr Clr Drug Dosing 29.1 Est GFR ( Amer) 27.3 Est GFR (Non-Af Amer) 23.6 BUN/Creatinine Ratio 31.9 H Glucose 90 POC Glucose 85 81 Calcium 8.9 Magnesium 2.0 02/08/24 02/08/24 05:27 07:19 WBC 5.30 RBC 4.52 L Hgb 13.6 L Hct 40.0 L MCV 88.5 MCH 30.1 MCHC 34.0 RDW Std Deviation 49.0 H RDW Coeff of [place] 15.0 H Plt Count 134 MPV 9.6 Immature Gran % (Auto) 0.2 Neut % (Auto) 61.8 Lymph % (Auto) 19.6 [place] % (Auto) 15.7 Eos % (Auto) 2.1 Baso % (Auto) 0.6 Neut # (Auto) 3.28 Lymph # (Auto) 1.04 L [place] # (Auto) 0.83 H Eos # (Auto) 0.11 Baso # (Auto) 0.03 Immature Gran # (Auto) 0.01 VBG pH VBG pCO2 VBG pO2 VBG HCO3 VBG O2 Saturation VBG Base Excess Sodium 142 Potassium 4.5 Chloride 108 H Carbon Dioxide 27 Anion Gap 7 BUN 63 H D Creatinine 1.97 H D Est Cr Clr Drug Dosing 38.2 Est GFR ( Amer) 38.2 Est GFR (Non-Af Amer) 33.0 BUN/Creatinine Ratio 32.0 H Glucose 81 POC Glucose 116 H Calcium 8.5 L Magnesium PG Care Time/CCT Total # of Minutes Spent Total Time Spent with Patient: Total time spent is greater than 50% in coordination of care (as documented) at patient's floor/unit and/or counseling patient: Coding Level of Care Code 52138 SUB INP/OBS CARE 3/50MIN Diagnoses JINNY (acute kidney injury) N17.9 Metabolic acidosis with normal anion gap and bicarbonate losses E87.20 Acute hyperkalemia E87.5
--- NOTE | 2024-02-08 15:57 | Hospitalist Progress Note ---
Date of Service February 08, 2024 Assessment & Plan (1) Acute renal failure with oliguria: Plan: Secondary to dehydration from combination of diarrhea and continuing diuretics Improving with hydration Creatinine improved from 5.3-3.18 IV fluids discontinued Monitor labs If continues to improve, will discharge tomorrow Nephrology involved Hyperkalemia resolved (2) Metabolic acidosis with normal anion gap and bicarbonate losses: Plan: Resolved Discontinue IV fluids (3) Type 2 diabetes mellitus with obesity: Plan: -Hold metformin, Semaglutide -Monitor BSG ACHS , goal is 110-160 -Start CF 50 and CR 15 ACHS for now -Will hold basal insulin for now to avoid hypoglycemia with his renal failure -Adjust regimen as needed (4) Acute hyperkalemia: Plan: -Potassium of 5.7 on arrival Resolved with improvement in renal function (5) Slurred speech: Plan: This was most likely metabolic encephalopathy from acute kidney injury Resolved Patient is no more slurring his speech (6) Diarrhea: Plan: -Has had 6-10 episodes of non-bloody diarrhea daily for the past 7-10 days Resolved Most likely viral in etiology (7) Hypotension: Plan: -Initially with systolics in the 80's on arrival -Currently stable -Likely a combination of dehydration, ongoing diuretic use -Continue maintenance fluids, holding antihypertensives for now (8) COPD (chronic obstructive pulmonary disease): Plan: -Stable on RA, no wheezing on exam -Not on home breathing treatments -Start incentive spirometry and prn albuterol for now (9) CAD (coronary artery disease): Plan: -Continue plavix and statin Plan Likely discharge tomorrow Admission and Anticipated Discharge Date Admission Date: February 06, 2024 Subjective Patient feels well. Denies chest pain or shortness of breath. Diarrhea resolved. Tolerating diet. Review of Systems Review of Systems: All systems reviewed & are unremarkable except as noted in Subjective Physical Exam Physical Exam: General: Awake, conversant Heart: S1, S2/regular rate and rhythm, no murmur rubs or gallops Lungs: Clear to auscultation bilaterally. Normal effort Abdomen: Soft/nontender/nondistended. No hepatosplenomegaly Extremities: No clubbing/cyanosis. No edema Behavior: Appropriate, cooperative Results & Data Results & Data Vital Signs (Past 12 Hours) Vital Signs Temp Pulse Pulse Resp BP Pulse Ox O2 Del Method 02/08/24 11:12 36.8 C 88 18 132/78 95 Room Air 02/08/24 07:59 36.7 C 82 18 159/83 H 96 Room Air 02/08/24 06:33 78 PG Care Time/CCT Total # of Minutes Spent Total Time Spent with Patient: Total time spent is greater than 50% in coordination of care (as documented) at patient's floor/unit and/or counseling patient: Coding Level of Care Code 17465 SUB INP/OBS CARE 2/35MIN Diagnoses Acute renal failure with oliguria N17.9; R34 Metabolic acidosis with normal anion gap and bicarbonate losses E87.20 Type 2 diabetes mellitus with obesity E11.69; E66.9 Acute hyperkalemia E87.5 Slurred speech R47.81 Diarrhea R19.7 Hypotension I95.9 COPD (chronic obstructive pulmonary disease) J44.9 Coronary artery disease involving [place] coronary artery of [place] heart without angina pectoris I25.10 Coronary Disease-Associated Artery/Lesion type: [place] artery [place] vs. transplanted heart: [place] heart Associated angina: without angina (9) CAD (coronary artery disease) Coronary Disease-Associated Artery/Lesion type: [place] artery [place] vs. transplanted heart: [place] heart Associated angina: without angina Qualified Code(s): I25.10 - Atherosclerotic heart disease of [place] coronary artery without angina pectoris
[2024-02-09 06:42] LABS: Basophils # (auto) 0.02 K/uL (0.00-0.20); Basophils % (auto) 0.4 %; Eosinophils # (auto) 0.07 K/uL (0.00-0.50); Eosinophils % (auto) 1.4 %; Hematocrit (blood only) 41.5 % (42.0-52.0); Hemoglobin 14.2 g/dl (14.0-18.0); Immature Granulocytes # (auto) 0.01 K/uL (0.01-0.20); Immature Granulocytes % (auto) 0.2 %; Lymphocytes % (auto) 17.9 %; Mean Corpuscular Hemoglobin 30.3 pg (25.0-34.0); Mean Corpuscular Hgb Conc 34.2 g/dL (32.0-36.0); Mean Corpuscular Volume 88.7 fL (80.0-100.0); Mean Platelet Volume 9.5 fL (9.4-12.4); Monocytes # (auto) 0.74 K/uL (0.11-0.59); Monocytes % (auto) 14.7 %; Neutrophils # (auto) 3.29 K/uL (1.40-6.50); Neutrophils % (auto) 65.4 %; Platelet Count 134 K/uL (130-400); RDW Coefficient of Variation 14.7 % (11.5-14.5); RDW Standard Deviation 48.8 fL (36.4-46.3); Red Blood Count 4.68 M/uL (4.70-6.10); White Blood Count 5.03 K/ul (4.8-10.8)
[2024-02-09 06:49] LABS: BUN Creatinine Ratio 23.4 (10-20); Calcium 8.9 mg/dl (8.6-10.3); Creatinine Clr Calc Pharmacy 48.2 ml/min; Est GFR (African American) 51.5 ml/min; Est GFR (Non-African American) 44.4 ml/min; Potassium 4.5 mmol/L (3.5-5.1)
--- NOTE | 2024-02-09 09:11 | Discharge Summary ---
Date of Service February 09, 2024 Admission HPI Per Admitting Provider Mike is a 73 year old male with a PMH significant for CAD s/p LAD BMS 2006, s/p RCA HELENE 2015, Ischemic Cardiomyopathy (LVEF 50-55% as of 08/2023), Hypertension, Dyslipidemia, Type 2 Diabetes Mellitus, Right Vertebral Artery Aneurysm, COPD, and Cryptogenic Stroke s/p [employer] LNQ II ILR Implantation 10/13/23 who presented to the [facility] ED on 02/06/24 with a chief complaint of ongoing diarrhea over the past 5-6 days. He was noted to be hypotensive on arrival at 81/55 and tachycardic at 93 but otherwise stable. Labs were significant for a Cr of 5.32 (baseline is 1.20), BUN of 117, bicarb of 19 with AG WNL, lactate of 2.1, potassium of 5.7, sodium of 132. Prior to admission the patient was given 2L NSS and 1gm IV calcium gluconate. The ED staff spoke with Nephrology who recommended medicine admission with ongoing IV fluids for now. On review, he does of mildly peaked T- waves on ECG today compared to 08/16/23. At the time of the exam the patient was sitting in bed in no acute distress with his , daughter, and son-in-law bedside, history was obtained from all. The patient has been experiencing 6-10 episodes of loose, non-bloody diarrhea for the past 7-10 days. Denies recent antibiotic use but recently completed a prednisone taper fro acute gout flare. He did complete the course of prednisone and his gout flare resolved. Has had poor oral intake, very little urine output over the past 24-48 hours. Denies recent fever, chills, chest pain, cough, SOB, abd pain, nausea, vomiting, dysuria, hematuria, melena, LE swelling, and recent trauma. When asked, they confirm that he has been taking all home medications as prescribed with these symptoms including his HCTZ and olmesartan. His family is concerned he may have had another stroke over the past 48-72 hours as they have noted slurred speech at time and they noted he was having LLE weakness while waking into the ED today. The patient denies focal neuro defects at the time of my exam and states his only complaint is being hungry. We discussed code status, the patient wishes to be a DNR/DNI and for his to make medical decisions for him if he cannot make them himself. Please refer to Dr. Serrano's attestation for any changes to the treatment plan Admission Exam Per Admitting Provider General: In no acute distress, stated age, chronically ill appearing but non- toxic HEENT: Normocephalic, atraumatic, no scleral icterus, pupils around round, symmetrical, and reactive to light, dry mucus membranes, no JVD, trachea midline, no thyromegaly Chest/Pulm: No respiratory distress, symmetrical chest expansion, clear breath sounds throughout Cardiac: RRR, no murmurs noted Abdomen: Negative for ascites and bruising, normoactive bowel sounds, soft, non- tender to palpation throughout Musculoskeletal: Symmetrical and without signs of acute trauma, upper and lower extremities with full ROM, no atrophy, spasticity, or flaccidity Extremities: Radial, dorsalis pedis, and posterior tibial pulses are intact and symmetrical, no edema noted in the BL LE's Skin: Warm, dry, no rashes , lesions, or scars noted Neuro: Alert and oriented to person, place, month, year, no focal defects, CN II-XII tested and intact, Negative cerebellar and pronator drift in the BL upper extremities, no tremors noted Psych: No acute distress, calm and cooperative during the exam Principal Diagnosis Acute kidney injury due to severe dehydration from combination of diarrhea and continuing antihypertensives Hypovolemic shock Metabolic acidosis due to renal failure Acute hyperkalemia due to renal failure Metabolic encephalopathy due to renal failure Discharge Exam General: Awake, conversant Heart: S1, S2/regular rate and rhythm, no murmur rubs or gallops Lungs: Clear to auscultation bilaterally. Normal effort Abdomen: Soft/nontender/nondistended. No hepatosplenomegaly Extremities: No clubbing/cyanosis. No edema Behavior: Appropriate, cooperative Discharge Data Allergies Allergy/AdvReac Type Severity Reaction Status Date / Time No Known Drug Allergies Allergy N/A Verified 02/06/24 18:01 Consultations 02/06/24 14:25 ED Decision to Admit Stat 02/06/24 14:44 Consult Nephrology Routine Ordered Studies 02/06/24 14:28 CT head/brain wo con Urgent 02/06/24 14:57 US Renal Bladder [US renal/blad retro comp] Urgent Hospital Course (1) Acute renal failure with oliguria: Secondary to dehydration from combination of diarrhea and continuing diuretics and antihypertensives Improved with hydration Creatinine improved from 5.3 to 1.5 today creatinine continued to downtrend despite discontinuation of fluids Nephrology involved Hyperkalemia resolved I will discharge him today with an outpatient follow-up with his PCP and cargo agent Check BMP in 1 week Continue to hold olmesartan, hydrochlorothiazide, metformin until cleared by PCP (2) Metabolic acidosis with normal anion gap and bicarbonate losses: Resolved Discontinue IV fluids (3) Type 2 diabetes mellitus with obesity: -Hold metformin until cleared by PCP (4) Acute hyperkalemia: -Potassium of 5.7 on arrival Resolved with improvement in renal function (5) Slurred speech: This was most likely metabolic encephalopathy from acute kidney injury Resolved Patient is no more slurring his speech (6) Diarrhea: -Has had 6-10 episodes of non-bloody diarrhea daily for the past 7-10 days Resolved Most likely viral in etiology (7) Hypotension: -Initially with systolics in the 80's on arrival -Currently stable -Likely a combination of dehydration, ongoing diuretic use -Continue maintenance fluids, holding antihypertensives for now (8) COPD (chronic obstructive pulmonary disease): -Stable on RA, no wheezing on exam -Not on home breathing treatments -Start incentive spirometry and prn albuterol for now (9) CAD (coronary artery disease): -Continue plavix and statin Plan Discharge to home today Total Time Total Time Spent Total Time Spent (In Minutes): 35 Discharge Plan Discharge Items Patient Disposition: Home - Self-Care Reason For Visit: acute renal failure, hyperkalemia Discharge Diagnosis: Acute kidney injury due to severe dehydration from combination of diarrhea and continuing antihypertensives Hypovolemic shock Metabolic acidosis due to renal failure Acute hyperkalemia due to renal failure Metabolic encephalopathy due to renal failure Activity: Resume your previous activity Non-emergency contact: Primary Care Provider Call non-emergency contact if: you have any medication questions and your symptoms worsen Follow-up/Referrals: Rosalio Smith DO [Physician] - 02/16/24 9:00 am (Nephrology follow up scheduled with Dr. Smith on February 15 at 9:00) Geri Banks MD [Primary Care Provider] - 02/22/24 3:00 pm Diet: Carb Consistent or DM2 and Heart Healthy Ambulatory Orders: Basic Metabolic Panel (Routine) Timeframe: 1 Week Location: Determined by Patient Ordered By: Leslie Kim Attending Provider Instructions: Advised to follow-up with PCP in 1 week Advised to follow-up with cargo agent in 1 week Advised to do blood work (basic metabolic panel) in 1 week Pending Studies at Discharge: No Stand-Alone Forms: My [facility] Medications and DC Order Prescriptions: Continued gabapentin 300 mg capsule 900 mg PO UD Qty: 270 3RF Rx Instructions: Take 300mg in AM, 600mg in PM atorvastatin 40 mg tablet 40 mg PO DAILY Qty: 90 3RF carvedilol 25 mg tablet 25 mg PO BID Qty: 180 3RF Rx Instructions: must administer with a meal/food clopidogrel 75 mg tablet 75 mg PO QAM Qty: 90 3RF pantoprazole 20 mg tablet,delayed release (DR/EC) 20 mg PO DAILY Qty: 90 3RF nitroglycerin [Nitrostat] 0.4 mg tablet, sublingual 0.4 mg sublingual Q5M PRN (Reason: Chest Pain) Rx Instructions: do not exceed 3 doses per episode lidocaine 3 % cream 1 applic topical BID PRN (Reason: pain) Qty: 28.35 3RF Rx Instructions: For discomfort over loop recorder cyanocobalamin (vitamin B-12) [Vitamin B-12] 1,000 mcg Tablet 1,000 mcg PO QAM semaglutide 1 mg/dose (4 mg/3 mL) pen injector 1 mg SUBCUT UD Rx Instructions: No fill history Held olmesartan 40 mg tablet 40 mg PO DAILY Qty: 90 3RF Hold Instructions: Resume on 02/16/24. Hold until instructed by PCP to resume it hydrochlorothiazide 25 mg tablet 25 mg PO DAILY PRN (Reason: take for SBP >140) Qty: 90 3RF Hold Instructions: Resume on 02/16/24. Hold until instructed by PCP to resume it Rx Instructions: Take for SBP >140 metformin 500 mg tablet 2,000 mg PO QPM Hold Instructions: Resume on 02/16/24. Hold until instructed by PCP to resume it Discharge Orders: Discharge Order (Routine); Ordered 02/09/24 Ordered By: Leslie Palacio/Other Patient Handouts: Managing Type 2 Diabetes Admission Data Admit Date/Time: 02/06/24 15:36 Attending Provider: Leslie Barcenas Admit Provider: Beto Serrano Primary Care Provider: Geri Banks Other Providers: Beto Serrano; Juanjo Govea Other Interventions: Discharge Summary Assessment (RN) Last Done: 02/09/24 09:19 Coding Level of Care Code 05447 INP/OBS DISCH >30 MIN Diagnoses Acute renal failure with oliguria N17.9; R34 Metabolic acidosis with normal anion gap and bicarbonate losses E87.20 Type 2 diabetes mellitus with obesity E11.69; E66.9 Acute hyperkalemia E87.5 Slurred speech R47.81 Diarrhea R19.7 Hypotension I95.9 COPD (chronic obstructive pulmonary disease) J44.9 Coronary artery disease involving [place] coronary artery of [place] heart without angina pectoris I25.10 Associated angina: without angina Coronary Disease-Associated Artery/Lesion type: [place] artery [place] vs. transplanted heart: [place] heart
== END 2024-02-09 10:00 | disposition home or self-care (01) | DRG 682 ==
LOC: ED 12:12 → 4W 15:28 → SUATTDRO 15:36 → 4W 15:36
DX: E86.0 Dehydration; E66.9 Obesity, unspecified; I95.89 Other hypotension; R34 Anuria and oliguria; Z79.85 Long-term (current) use of injectable non-insulin antidiabetic drugs; E11.9 Type 2 diabetes mellitus without complications; E87.20 Acidosis, unspecified; Z79.84 Long term (current) use of oral hypoglycemic drugs; G93.41 Metabolic encephalopathy; R19.7 Diarrhea, unspecified; Z95.5 Presence of coronary angioplasty implant and graft; Z86.73 Personal history of transient ischemic attack (TIA), and cerebral infarction without residual deficits; Z87.891 Personal history of nicotine dependence; J44.9 Chronic obstructive pulmonary disease, unspecified; R47.81 Slurred speech; I25.10 Atherosclerotic heart disease of native coronary artery without angina pectoris; N17.9 Acute kidney failure, unspecified; Z68.32 Body mass index [BMI] 32.0-32.9, adult; E87.5 Hyperkalemia; R57.1 Hypovolemic shock; I25.5 Ischemic cardiomyopathy